=== PATIENT | female | born 1950 | race Caucasian/White ===

== ENCOUNTER 2020-01-03 20:36 | Emergency (ER) | payer MEDICARE, OTHER ==
--- NOTE | 2020-01-03 20:58 | ED Physician Documentation ---
PD HPI UPPER EXT INJURY - Stated complaint Stated Complaint: FALL - LT HAND/WRIST INJ - Chief complaint Chief Complaint: Ext Problem - History obtained from History obtained from: Patient - History of Present Illness Location: Left, Hand Type of injury: Fall Where injury occurred: Home Timing - onset: How many hours ago (2) Timing - duration: Hours (2) Timing - details: Abrupt onset Pain level max: 5 Pain level now: 3 Improved by: Rest, Ice, Immobilization Worsened by: Moving, Palpating Associated symptoms: No: Weakness, Numbness, Tingling Contributing factors: No: Anticoagulated Recently seen: Not recently seen Review of Systems Constitutional: denies: Fever, Chills Respiratory: denies: Cough GI: denies: Nausea, Vomiting, Diarrhea Neurologic: denies: Focal weakness, Numbness, Headache PD PAST MEDICAL HISTORY - Past Medical History Cardiovascular: Hypertension, CT Respiratory: None Endocrine/Autoimmune: None GI: None : None HEENT: None Psych: Other Musculoskeletal: None Derm: None - Past Surgical History Past Surgical History: Yes Neuro: Craniotomy - Present Medications Home Medications: Ambulatory Orders Medication Instructions Recorded Confirmed Albuterol 2.5 mg INH Q4H PRN 06/28/13 07/02/13 Diphenoxylate HCl/Atropine 1 each PO DAILY 06/28/13 07/02/13 [Diphenoxylate-Atropine Tablet] Folic Acid 1 mg PO DAILY 06/28/13 07/02/13 Levetiracetam [Levetiracetam ER] 500 mg PO BID 06/28/13 07/02/13 Temazepam [Restoril] 30 mg PO HS 06/28/13 07/02/13 Thiamine [Vitamin B-1] 100 mg PO DAILY 06/28/13 07/02/13 carvediloL [Coreg] 3.125 mg PO BID 06/28/13 07/02/13 diphenhydrAMINE [Benadryl] 50 mg PO HS PRN 06/28/13 07/02/13 lisinopriL [Lisinopril] 2.5 mg PO DAILY 06/28/13 07/02/13 Isosorbide Dinitrate 5 mg PO BID 07/02/13 07/02/13 Pantoprazole Sodium 40 mg PO DAILY 07/02/13 07/02/13 Sucralfate [Carafate] 1 gm PO ACHS 07/02/13 07/02/13 - Allergies Allergies/Adverse Reactions: Allergies Allergy/AdvReac Type Severity Reaction Status Date / Time Sulfa (Sulfonamide Allergy Severe Rash Verified 06/28/13 05:42 Antibiotics) - Social History Does the pt smoke?: No Smoking Status: Never smoker Does the pt drink ETOH?: Yes Does the pt have substance abuse?: No - Immunizations Immunizations are current?: Yes - POLST Patient has POLST: No POLST Status: Full Code PD ED PE NORMAL - Vitals Vital signs reviewed: Yes - General General: Alert and oriented X 3, No acute distress - HEENT HEENT: Atraumatic, Moist mucous membranes - Derm Derm: Warm and dry - Extremities Extremities: Other (Tender to palpation over the left hand, thenar eminence. No snuffbox tenderness. Otherwise normal examination of the hand, wrist and forearm. No tenderness over the radial head. Neurovascular intact) - Neuro Neuro: Alert and oriented X 3 Results - Vitals Vitals: Vital Signs - 24 hr 01/03/20 01/03/20 20:42 21:33 Temperature 36.2 C L Heart Rate 77 66 Respiratory 17 16 Rate Blood Pressure 157/87 H 125/79 O2 Saturation 100 98 Oxygen O2 Source Room air - Rads (name of study) L hand xray Radiology: Prelim report reviewed, EMP read contemporaneously, See rad report (No acute abnormality) PD MEDICAL DECISION MAKING - ED course Complexity details: reviewed results, re-evaluated patient, considered differential, d/w patient ED course: Placed in a Velcro thumb spica for comfort. All jewelry was removed from the arm and fingers. No acute findings on x-ray. Patient counseled regarding signs and symptoms for which I believe and urgent re-evaluation would be necessary. Patient with good understanding of and agreement to plan and is comfortable going home at this time This document was made in part using voice recognition software. While efforts are made to proofread this document, sound alike and grammatical errors may occur. Departure - Departure Disposition: 01 Home, Self Care Clinical Impression: Sprain of wrist, left Qualifiers: Encounter type: initial encounter Qualified Code(s): S63.502A - Unspecified sprain of left wrist, initial encounter Condition: Good Instructions: ED Sprain Wrist Follow-Up: your,doctor in 1 week [Other] Comments: Keep your rings off for the next several days. Use the splint as needed for comfort. Return if you worsen. Your x-rays do not show any fractures today
--- NOTE | 2020-01-03 21:18 | XRAY Report ---
PROCEDURE: Hand 3 View LT INDICATIONS: fall, L hand pain TECHNIQUE: 3 views of the hand(s) acquired. COMPARISON: None. FINDINGS: Bones: No fractures or dislocations. There is diffuse interphalangeal joint space narrowing and mode rate degenerative change at the first CMC joint. No suspicious bony lesions. Soft tissues: No suspicious soft tissue calcifications. IMPRESSION: 1. No acute radiographic findings. If pain persists, consider repeat imaging in 5-7 days to exclude o ccult fracture. 2. Degenerative change. Reviewed by: Maggie Waite MD on 01/03/2020 9:17 PM PDT Approved by: Maggie Waite MD on 01/03/2020 9:17 PM PDT Station ID: [id number]
[2020-01-03] MEDS ORDERED: oxyCODONE 5 MG TABLET PO STA (21:26)
[2020-01-03 21:41] VITALS: BP 130/82
== END 2020-01-03 21:40 | disposition home or self-care (01) ==
LOC: ED 20:36
DX: S63.502A Unspecified sprain of left wrist, initial encounter (principal); W01.0XXA Fall on same level from slipping, tripping and stumbling without subsequent striking against object, initial encounter; Y93.G3 Activity, cooking and baking; Y92.009 Unspecified place in unspecified non-institutional (private) residence as the place of occurrence of the external cause; I10 Essential (primary) hypertension
CPT/HCPCS: 73130; 99282; 99283; A9270

== ENCOUNTER 2020-12-05 10:13 | Outpatient (CLI) | payer MEDICARE, OTHER ==
[2020-12-05 10:44] LABS: BASOPHILS % (AUTO) 0.8 %; EOSINOPHILS # (AUTO) 0.2 10^3/uL (0.0-0.7); EOSINOPHILS % (AUTO) 4.1 %; HCT - HEMATOCRIT 40.2 % (37.0-47.0); HGB - HEMOGLOBIN 13.1 g/dL (12.0-16.0); LYMPHOCYTES # (AUTO) 1.6 10^3/uL (1.5-3.5); LYMPHOCYTES % (AUTO) 31.3 %; MEAN CORPUSCULAR HEMOGLOBIN 31.1 pg (27.0-31.0); MEAN CORPUSCULAR HGB CONC 32.6 g/dL (32.0-36.0); MEAN CORPUSCULAR VOLUME 95.5 fL (81.0-99.0); MEAN PLATELET VOLUME 9.6 fL (7.9-10.8); MONOCYTES # (AUTO) 0.3 10^3/uL (0.0-1.0); MONOCYTES % (AUTO) 6.7 %; NEUTROPHILS # (AUTO) 2.9 10^3/uL (1.5-6.6); NEUTROPHILS % (AUTO) 56.7 %; PLT - PLATELET COUNT 256 10^3/uL (130-450); RED BLOOD COUNT 4.21 10^6/uL (4.20-5.40); WHITE BLOOD COUNT 5.1 x10^3/uL (4.8-10.8)
[2020-12-05 11:02] LABS: ALBUMIN 4.9 g/dL (3.2-5.5); ALBUMIN/GLOBULIN RATIO 1.4 (1.0-2.2); ALKALINE PHOSPHATASE 62 IU/L (42-121); ALT ALANINE AMINOTRANSFERASE 33 IU/L (10-60); AST ASPARTATE AMINOTRANSFERASE 38 IU/L (10-42); BILIRUBIN,TOTAL 0.7 mg/dL (0.2-1.0); BUN - BLOOD UREA NITROGEN 12 mg/dL (6-20); CALCIUM 9.7 mg/dL (8.5-10.3); CARBON DIOXIDE - CO2 23 mmol/L (21-32); CHLORIDE 98 mmol/L (101-111); CHOL/HDL RATIO 2.5 (<4.4); CHOLESTEROL 250 mg/dL; CREATININE 0.6 mg/dL (0.4-1.0); GFR - MDRD 99 (>89); GLUCOSE 93 mg/dL (70-100); HDL CHOLESTEROL 102 mg/dL; LDL CHOLESTEROL,CALCULATED 133 mg/dL; LDL/HDL RATIO 1.3 (<4.4); POTASSIUM 4.1 mmol/L (3.5-5.0); SODIUM 133 mmol/L (135-145); TOTAL PROTEIN 8.5 g/dL (6.7-8.2); TRIGLYCERIDES 77 mg/dL; VLDL CHOLESTEROL 15 mg/dL
[2020-12-06 12:17] LABS: HEPATITIS C ANTIBODY NON-REACTIVE (NON-REACTIVE)
== END 2020-12-05 10:14 | disposition home or self-care (01) ==
LOC: LAB 10:13
PROVIDERS: ATTEND Internal Medicine
DX: Z00.00 Encounter for general adult medical examination without abnormal findings (principal); D32.0 Benign neoplasm of cerebral meninges; E16.2 Hypoglycemia, unspecified; I25.10 Atherosclerotic heart disease of native coronary artery without angina pectoris; Z79.899 Other long term (current) drug therapy; Z13.6 Encounter for screening for cardiovascular disorders; Z11.59 Encounter for screening for other viral diseases; G40.909 Epilepsy, unspecified, not intractable, without status epilepticus
CPT/HCPCS: 36415; 80053; 80061; 81599; 83525; 83721; 84443; 85025; 86803

== ENCOUNTER 2021-06-02 19:15 | Emergency (ER) | payer MEDICARE, OTHER ==
[2021-06-02] MEDS ORDERED: ASPIRIN CHEW 81 MG TABLET PO STA (19:39)
[2021-06-02 19:59] LABS: BASOPHILS # (AUTO) 0.1 10^3/uL (0.0-0.1); BASOPHILS % (AUTO) 1.2 %; EOSINOPHILS # (AUTO) 0.3 10^3/uL (0.0-0.7); EOSINOPHILS % (AUTO) 4.9 %; HCT - HEMATOCRIT 38.8 % (37.0-47.0); HGB - HEMOGLOBIN 12.6 g/dL (12.0-16.0); LYMPHOCYTES # (AUTO) 1.7 10^3/uL (1.5-3.5); LYMPHOCYTES % (AUTO) 34.2 %; MEAN CORPUSCULAR HEMOGLOBIN 31.3 pg (27.0-31.0); MEAN CORPUSCULAR HGB CONC 32.5 g/dL (32.0-36.0); MEAN CORPUSCULAR VOLUME 96.5 fL (81.0-99.0); MONOCYTES # (AUTO) 0.5 10^3/uL (0.0-1.0); MONOCYTES % (AUTO) 9.1 %; NEUTROPHILS # (AUTO) 2.6 10^3/uL (1.5-6.6); NEUTROPHILS % (AUTO) 50.4 %; PLT - PLATELET COUNT 302 10^3/uL (130-450); RED BLOOD COUNT 4.02 10^6/uL (4.20-5.40); RED CELL DISTRIBUTION WIDTH 12.4 % (12.0-15.0); WHITE BLOOD COUNT 5.1 x10^3/uL (4.8-10.8)
--- NOTE | 2021-06-02 20:12 | XRAY Report ---
PROCEDURE: Chest 1 View X-Ray INDICATIONS: Chest Pain TECHNIQUE: One view of the chest was acquired. COMPARISON: None. FINDINGS: Surgical changes and devices: None. Lungs and pleura: No pleural effusions or pneumothorax. Scattered subsegmental scarring/atelectasi s. No acute consolidation. Lungs appear hyperinflated Mediastinum: Mediastinal contours appear normal. Heart size is normal. Bones and chest wall: No suspicious bony lesions. Overlying soft tissues appear unremarkable. IMPRESSION: Scattered subsegmental scarring/atelectasis. No acute consolidation. Reviewed by: Yassine Jackman MD on 06/02/2021 8:10 PM PST Approved by: Yassine Jackman MD on 06/02/2021 8:10 PM [facility] Station ID: [id number]
[2021-06-02] MEDS ORDERED: HYDROmorphone 1 MG/ML CARPUJECT IVP STA (20:13)
--- NOTE | 2021-06-02 20:13 | ED Physician Documentation ---
PD HPI CHEST PAIN - Stated complaint Stated Complaint: MID STERNAL PAIN & L SIDE CHEST AREA PX - Chief complaint Chief Complaint: Trauma Hd/Nk - History obtained from History obtained from: Patient - Additional information Additional information: 70 year-old woman with well-controlled seizure disorder, she fell a few days ago and got injured, tonight during dinner she developed severe epigastric and chest spasming. It feels like childbirth. She is never had this before. She has had a broken rib before and this is not similar. PD PAST MEDICAL HISTORY - Past Medical History Cardiovascular: Hypertension, [place] Respiratory: None Neuro: Seizure disorder Endocrine/Autoimmune: None GI: None : None HEENT: None Psych: Other Musculoskeletal: None Derm: None - Past Surgical History Past Surgical History: Yes Neuro: Craniotomy - Present Medications Home Medications: Ambulatory Orders Medication Instructions Recorded Confirmed Albuterol 2.5 mg INH Q4H PRN 06/28/13 06/02/21 Levetiracetam [Levetiracetam ER] 500 mg PO BID 06/28/13 06/02/21 Temazepam [Restoril] 30 mg PO HS 06/28/13 06/02/21 diphenhydrAMINE [Benadryl] 50 mg PO HS PRN 06/28/13 06/02/21 HYDROcod/ACETAM 5/325 [[place] 5/325] 1 - 2 tab PO Q6H PRN #15 tablet 06/02/21 Lacosamide [Vimpat] 100 mg PO BID 06/02/21 06/02/21 - Allergies Allergies/Adverse Reactions: Allergies Allergy/AdvReac Type Severity Reaction Status Date / Time Sulfa (Sulfonamide Allergy Severe Rash Verified 06/02/21 19:38 Antibiotics) - Social History Does the pt smoke?: No Smoking Status: Never smoker Does the pt drink ETOH?: Yes Does the pt have substance abuse?: No - Immunizations Immunizations are current?: Yes - POLST Patient has POLST: No POLST Status: Full Code PD ED PE NORMAL - Vitals Vital signs reviewed: Yes - General General: Alert and oriented X 3, Other (She appears uncomfortable and is clutching her epigastrium. She is trying to breathe through the pain.) - HEENT HEENT: PERRL, EOMI, Other (Healing lacerationss above the left eye) - Neck Neck: Supple, no meningeal sign, No bony TTP - Cardiac Cardiac: RRR, No murmur - Respiratory Respiratory: No respiratory distress, Clear bilaterally - Abdomen Abdomen: Other (Exquisitely tender in the right upper quadrant) - Back Back: No CVA TTP, No spinal TTP - Derm Derm: Normal color, Warm and dry - Extremities Extremities: No edema, No calf tenderness / cord - Neuro Neuro: Alert and oriented X 3, Normal speech Results - Vitals Vitals: Vital Signs - 24 hr 06/02/21 06/02/21 06/02/21 19:17 20:02 20:30 Temperature 36.9 C Heart Rate 78 80 73 Respiratory 20 16 15 Rate Blood Pressure 135/85 H 119/79 141/83 H O2 Saturation 99 100 95 06/02/21 06/02/21 21:00 21:26 Temperature 36.8 C Heart Rate 70 76 Respiratory 12 19 Rate Blood Pressure 148/82 H 141/81 H O2 Saturation 97 98 Oxygen O2 Source Room air - Labs Labs: Laboratory Tests 06/02/21 06/02/21 06/02/21 19:45 19:45 19:45 WBC 5.1 RBC 4.02 L Hgb 12.6 Hct 38.8 MCV 96.5 MCH 31.3 H MCHC 32.5 RDW 12.4 Plt Count 302 MPV 9.0 Neut # (Auto) 2.6 Lymph # (Auto) 1.7 [place] # (Auto) 0.5 Eos # (Auto) 0.3 Baso # (Auto) 0.1 Absolute Nucleated RBC 0.00 Nucleated RBC % 0.0 Sodium 141 Potassium 3.7 Chloride 103 Carbon Dioxide 25 Anion Gap 13.0 BUN 14 Creatinine 0.7 Estimated GFR (MDRD) 83 L Glucose 75 Calcium 9.7 Total Bilirubin 0.4 AST 34 ALT 26 Alkaline Phosphatase 70 Troponin I High Sens 5.7 Total Protein 8.4 H Albumin 4.8 Globulin 3.6 Albumin/Globulin Ratio 1.3 Lipase 36 PD MEDICAL DECISION MAKING - ED course ED course: 70yo woman presents with a severe right-sided and epigastric/chest spasming that started while eating dinner tonight. She is exquisitely tender in the right upper quadrant and this is all consistent with biliary colic. After 1 mg of Dilaudid she was all but pain-free and the tenderness abated. She has many gallstones on ultrasound and her episode is consistent with biliary colic. There is no evidence of cholecystitis. No evidence of ACS. Departure - Departure Disposition: 01 Home, Self Care Clinical Impression: Biliary colic Condition: Good Record reviewed to determine appropriate education?: Yes Instructions: ED Gallstone W Biliary Colic Follow-Up: Ian Leigh MD [Provider Admit Priv/Credential] - Prescriptions: HYDROcod/ACETAM 5/325 [[place] 5/325] 1 - 2 tab PO Q6H PRN #15 tablet PRN Reason: Pain Comments: [facility] [place]. Call the surgeon's office to follow-up, return for new or worsening symptoms. I am prescribing a short course of narcotic pain medication for you. These are potentially dangerous and addictive medications that should be used carefully. These medications may constipate you. Take an ktdw-ujb-mpptasa stool softener (docusate) twice daily with plenty of water while taking these medications. If you go 24 hours without a bowel movement, take fwaq-hmd-irijjga miralax, per package instructions. Do not drink or drive while taking these medications. If you received narcotic or sedating medications while in the emergency department, do not drive for 24 hours. Store this medication in a safe, secure place and out of reach of children. It is a violation of federal law to give or sell this medication to another person or to use in a manner other than prescribed. The ED will not refill narcotic prescriptions, including prescriptions lost or stolen. To dispose of unwanted medications: 1. [facility] at [address] in [place] has a medication drop box. They accept prescription medications (in pill form) Tuesday through Tuesday 9:00 a.m. to 5:00 p.m. 2. The [facility] [employer] accepts prescription medications (in pill form only) for disposal year round. Call for more information. 3. Contact the [facility] for the next [facility] sponsored prescription drug collection event. , [phone], or [phone]; Note that many narcotic pain relievers also contain Tylenol/acetaminophen. Please ensure that your total dose of acetaminophen from all sources does not exceed 3 g (3000 mg) per day.
[2021-06-02 20:15] LABS: ALBUMIN 4.8 g/dL (3.2-5.5); ALBUMIN/GLOBULIN RATIO 1.3 (1.0-2.2); BILIRUBIN,TOTAL 0.4 mg/dL (0.2-1.0); CALCIUM 9.7 mg/dL (8.5-10.3); CREATININE 0.7 mg/dL (0.4-1.0); POTASSIUM 3.7 mmol/L (3.5-5.0); TOTAL PROTEIN 8.4 g/dL (6.7-8.2)
[2021-06-02] MEDS ORDERED: HYDROcod/ACET 5/325 Prepack 4 PO STA (21:17)
[2021-06-02 21:27] VITALS: BP 141/81
--- NOTE | 2021-06-02 21:44 | Ultrasound Report ---
PROCEDURE: Abdomen Limited INDICATIONS: RUQ pain TECHNIQUE: Real-time focused scanning was performed of the abdomen, with image documentation. COMPARISON: Ultrasound dated 06/28/2013 FINDINGS: Previously described hemangioma seen on the prior study is not well seen on today's examin ation. Liver measures 14.2 cm in length. Gallbladder polyps measuring up to 4 mm. Gallstones are present. No wall thickening or pericholecysti c fluid. No sonographic López sign. No bile duct dilatation is seen. The pancreas is unremarkable. R ight kidney measures 8.8 cm in length. Right renal cortex measures 1.4 cm in thickness. IMPRESSION: Cholelithiasis and gallbladder polyps however no other sonographic criteria for acute cholecystitis. Previous described presumed hepatic hemangioma is not well visualized on today's examination. Reviewed by: Yassine Jackman MD on 06/02/2021 9:42 PM PST Approved by: Yassine Jackman MD on 06/02/2021 9:42 PM PST Station ID: [id number]
== END 2021-06-02 21:38 | disposition home or self-care (01) ==
LOC: ED 19:15
DX: K80.50 Calculus of bile duct without cholangitis or cholecystitis without obstruction (principal)
CPT/HCPCS: 36415; 71045; 76705; 80053; 83690; 84484; 85025; 93005; 96374; 99283; 99284; A9270; J1170

== ENCOUNTER 2021-06-24 11:54 | Day surgery (SDC) | payer MEDICARE, OTHER ==
[~2021-06-24 11:54] MED LIST: CEFAZOLIN SODIUM IN 0.9 % NACL 2 GM/100 ML BAG IV ONE
[2021-06-24] MEDS ORDERED: LACTATED RINGERS 1,000 ML IV ONE ×2 (12:27→15:46)
[2021-06-24] MEDS ORDERED: BUPIVACAINE 0.5% PF 10 ML VIAL ONE (13:19)
[2021-06-24] MEDS ORDERED: LIDOCAINE MPF 2%-EPI 1:200000 20 ML VIAL ONE (13:19)
[2021-06-24] MEDS ORDERED: MORPHINE 2 MG/ML CARPUJECT IVP PRN (13:36)
[2021-06-24] MEDS ORDERED: ATROPINE ABBOJECT 1 MG/10 ML SYRINGE IVP PRN (13:36)
[2021-06-24] MEDS ORDERED: fentaNYL 100 MCG/2 ML VIAL IVP PRN (13:36)
[2021-06-24] MEDS ORDERED: ONDANSETRON 4 MG/2 ML VIAL IVP PRN ×2 (13:36→15:49)
[2021-06-24] MEDS ORDERED: NALOXONE 0.4 MG/ML VIAL IVP PRN (13:36)
[2021-06-24] MEDS ORDERED: METOCLOPRAMIDE 10 MG/2 ML VIAL IVP PRN (13:36)
[2021-06-24] MEDS ORDERED: ePHEDrine 50 MG/ML VIAL IVP PRN (13:36)
--- NOTE | 2021-06-24 13:36 | ANESTHESIA ---
Pre-Anesthesia VS, & Labs - Diagnosis gallstones - Procedure lap evangelista Vital Signs: Temp Pulse Resp BP Pulse Ox 36.9 C 73 18 160/77 H 100 06/24/21 12:10 06/24/21 12:10 06/24/21 12:10 06/24/21 12:10 06/24/21 12:10 Height: 5 ft 2 in Weight (kg): 41 kg Body Mass Index: 16.5 BMI Classification: Underweight - NPO >8 hours - Is Patient ?: No - Lab Results Current Lab Results: Laboratory Tests 06/24/21 13:29: POC Whole Bld Glucose 94 Home Medications and Allergies Home Medications: Ambulatory Orders Amitriptyline HCl 50 mg PO QPM PRN 06/19/21 Albuterol 2.5 mg INH Q4H PRN 06/28/13 Levetiracetam [Levetiracetam ER] 500 mg PO BID 06/28/13 Temazepam [Restoril] 30 mg PO HS 06/28/13 diphenhydrAMINE [Benadryl] 50 mg PO HS PRN 06/28/13 Lacosamide [Vimpat] 100 mg PO BID 06/02/21 Amitriptyline HCl 50 mg PO QPM PRN 06/19/21 Allergies/Adverse Reactions: Allergies Allergy/AdvReac Type Severity Reaction Status Date / Time Sulfa (Sulfonamide Allergy Severe Anaphylaxis Verified 06/24/21 12:17 Antibiotics) pneumococcal vaccine Allergy Headache Verified 06/24/21 12:17 [From Pneumovax-23] sucralfate [From Carafate] Allergy Unknown Verified 06/24/21 12:17 flu vaccine Allergy Anaphylaxis Uncoded 06/24/21 12:17 Anes History & Medical History - Anesthetic History Anesthesia Complications: reports: No previous complications Family history of Anesthesia Complications: Denies Family history of Malignant Hyperthermia: Denies - Medical History Cardiovascular: reports: [place] Pulmonary: reports: Asthma Gastrointestinal: reports: Chronic diarrhea Urinary: reports: None Neuro: reports: Seizure disorder Musculoskeletal: reports: Osteoarthritis Endocrine/Autoimmune: reports: None Blood Disorders: reports: Anemia Skin: reports: None Smoking Status: Never smoker - Surgical History Eyes Ears Nose Throat (EENT): reports: Cataracts Gynecologic: reports: Tubal ligation Neurologic: reports: Craniotomy Exam General: Alert, Oriented x3, Cooperative Dental: WNL Mouth Openin Fingerbreadth Neck Mobility: Normal Mallampati classification: I Respiratory: Lungs clear Cardiovascular: Regular rate Plan Anesthesia Type: General Consent for Procedure(s) Verified and Reviewed: Yes Code Status: Attempt Resuscitation ASA classification: 3-Severe systemic disease Is this case an emergency?: No
[2021-06-24] MEDS ORDERED: PROPOFOL 200 MG/20 ML VIAL IVP ONE (13:45)
[2021-06-24] MEDS ORDERED: LIDOCAINE-MPF 2% 5 ML VIAL ONE (13:45)
[2021-06-24] MEDS ORDERED: ROCURONIUM 50 MG/5 ML VIAL ONE (13:45)
[2021-06-24] MEDS ORDERED: MIDAZOLAM 2 MG/2 ML VIAL ONE (13:47)
[2021-06-24] MEDS ORDERED: LACTATED RINGERS 1,000 ML IV SCH (14:00)
[2021-06-24] MEDS ORDERED: BUPIVACAINE 0.5% PF 10 ML VIAL SUBQ ONE ×2 (15:11)
[2021-06-24] MEDS ORDERED: LIDOCAINE MPF 2%-EPI 1:200000 20 ML VIAL SUBQ ONE ×2 (15:11)
[2021-06-24] MEDS ORDERED: KETOROLAC 30 MG/ML VIAL ONE (15:21)
[2021-06-24] MEDS ORDERED: fentaNYL 100 MCG/2 ML VIAL ONE (15:23)
[2021-06-24] MEDS ORDERED: SUGAMMADEX 200 MG/2 ML VIAL IVP ONE (15:31)
[2021-06-24] MEDS ORDERED: HYDROcod/ACETAM 5/325 MG TABLET PO PRN (15:49)
[2021-06-24] MEDS: HYDROmorphone 0.5 MG/0.5 ML SYRINGE IVP PRN ×2 (15:58→16:09)
--- NOTE | 2021-06-24 15:59 | OPERATIVE REPORT ---
Operative Report - General Procedure Date: 06/24/21 Planned Procedure: lap evangelista Pre-Op Diagnosis: chronic cholecystitis Procedure Performed: lap evangelista Post Op Diagnosis: chronic cholecystitis - Procedure Note Primary Surgeon: tasneem presley Anesthesia Technique: General ET tube, Local - Other Other Information/Narrative: The patient was properly identified, brought to the operating room and placed in supine position. Sequential compression devices were placed. General endotracheal anesthesia was induced. The patient was prepped and draped in a sterile fashion and given preoperative antibiotics. Local anesthetic was given to incision areas. An incision was made in the periumbilical area. Dissection proceeded down to fascia. The fascia was incised lifted upwards and abdomen entered with a Veress needle. CO2 was insufflated to a pressure of 15. An 11 mm trocar followed by a 30 degree scope was placed. There was no evidence of injury from Veress needle or trocar placement. Under direct vision 2 5 mm trochars were placed in the right upper quadrant and an 11 mm trocar was placed in the epigastrium. Body of the gallbladder was retracted anterior. Lateral attachments were partially taken down further mobilizing the gallbladder more anterior and away from the duodenum. The infundibulum of the gallbladder was then retracted right lateral and caudad. With minimal use of cautery a large bare cystic plate area or window was carefully created. The cystic duct was inspected from right lateral and left lateral positions. [] The cystic duct was then clipped at the gallbladder and 3 times slightly proximal and sharply divided. The cystic artery was clipped at the gallbladder and then 2 times slightly proximal and sharply divided. The gallbladder was mobilized off from the bed of the liver with hook cautery. The gallbladder was placed in Endo Catch bag and brought out through the epigastric trocar site. Hemostasis was assured. Trochars were removed under direct vision. Fascia at the larger trocar sites was closed with zuqmhg-sr-bisvz are running 0 Vicryl suture. Subcutaneous tissue was irrigated and skin closed with interrupted 4-0 Monocryl. Dressings were applied. Patient tolerated the procedure well was awakened and brought to recovery in good condition.
[2021-06-24] MEDS ORDERED: HYDROmorphone 0.5 MG/0.5 ML SYRINGE ONE ×2 (16:01→16:13)
--- NOTE | 2021-06-24 16:01 | ANESTHESIA POST OP EVALUATION ---
Anesthesia Post Eval - Post Anesthesia Eval Vitals: Last Vital Signs Temp 36.5 C 06/24/21 15:42 Pulse 79 06/24/21 15:45 Resp 18 06/24/21 15:45 BP 151/81 H 06/24/21 15:45 Pulse Ox 99 06/24/21 15:45 CV Function Including HR & BP: Stable Pain Control: Satisfactory Nausea & Vomiting: Negative Mental Status: Baseline Respiratory Status: Airway Patent Hydration Status: Satisfactory Anesthesia Complications: None
[2021-06-24] MEDS ORDERED: HYDROcod/ACETAM 5/325 MG TABLET ONE (16:38)
[2021-06-24 16:43] VITALS: BP 136/69
== END 2021-06-24 11:55 | disposition home or self-care (01) ==
LOC: SDS 11:54
PROVIDERS: ATTEND Surgery
PROC: 0FT44ZZ Resection of Gallbladder, Percutaneous Endoscopic Approach (ICD-10-PCS; principal; 2021-06-24 13:30)
DX: K80.10 Calculus of gallbladder with chronic cholecystitis without obstruction (principal); R63.6 Underweight; Z68.1 Body mass index [BMI] 19.9 or less, adult; J45.909 Unspecified asthma, uncomplicated
CPT/HCPCS: 47562; A9270; J0690; J1170; J7120

== ENCOUNTER 2021-12-29 17:33 | Outpatient (CLI) | payer MEDICARE, OTHER | END 2021-12-29 17:34 | disposition critical access hospital (66) | LOC: EMS 17:33 | DX: R41.0 Disorientation, unspecified (principal); R47.89 Other speech disturbances; R53.1 Weakness; R20.8 Other disturbances of skin sensation; I10 Essential (primary) hypertension | CPT/HCPCS: A0425; A0427 ==

== ENCOUNTER 2021-12-29 17:40 | Emergency (ER) | payer MEDICARE, OTHER ==
[2021-12-29] MEDS ORDERED: SODIUM CHLORIDE 0.9% 1,000 ML IV STA (17:55)
[2021-12-29 18:04] LABS: BASOPHILS # (AUTO) 0.1 10^3/uL (0.0-0.1); BASOPHILS % (AUTO) 1.1 %; EOSINOPHILS # (AUTO) 0.1 10^3/uL (0.0-0.7); EOSINOPHILS % (AUTO) 1.9 %; HCT - HEMATOCRIT 35.4 % (37.0-47.0); HGB - HEMOGLOBIN 11.7 g/dL (12.0-16.0); LYMPHOCYTES # (AUTO) 1.8 10^3/uL (1.5-3.5); LYMPHOCYTES % (AUTO) 32.5 %; MEAN CORPUSCULAR HEMOGLOBIN 31.8 pg (27.0-31.0); MEAN CORPUSCULAR HGB CONC 33.1 g/dL (32.0-36.0); MEAN CORPUSCULAR VOLUME 96.2 fL (81.0-99.0); MEAN PLATELET VOLUME 9.8 fL (7.9-10.8); MONOCYTES # (AUTO) 0.7 10^3/uL (0.0-1.0); MONOCYTES % (AUTO) 12.1 %; NEUTROPHILS # (AUTO) 2.8 10^3/uL (1.5-6.6); NEUTROPHILS % (AUTO) 52.2 %; PLT - PLATELET COUNT 254 10^3/uL (130-450); RED BLOOD COUNT 3.68 10^6/uL (4.20-5.40); RED CELL DISTRIBUTION WIDTH 12.3 % (12.0-15.0); WHITE BLOOD COUNT 5.4 x10^3/uL (4.8-10.8)
[2021-12-29] MEDS ORDERED: IOPAMIDOL-300 50 ML VIAL IVP ONE (18:10)
[2021-12-29 18:18] LABS: ALBUMIN 4.6 g/dL (3.2-5.5); ALBUMIN/GLOBULIN RATIO 1.4 (1.0-2.2); BILIRUBIN,TOTAL 0.5 mg/dL (0.2-1.0); CALCIUM 9.7 mg/dL (8.5-10.3); CREATININE 0.6 mg/dL (0.4-1.0); POTASSIUM 3.6 mmol/L (3.5-5.0)
[2021-12-29 18:23] LABS: INR 1.1 (0.8-1.2); PT - PROTHROMBIN TIME 11.9 secs (9.9-12.6)
--- NOTE | 2021-12-29 18:28 | CT Report ---
PROCEDURE: ANGIO HEAD W/WO INDICATIONS: L sided facial droop CONTRAST: IV CONTRAST: Isovue 300 ml: 75 PO CONTRAST: *NO PO CONTRAST TECHNIQUE: Precontrast 4.5 mm thick angled axial sections acquired from the foramen magnum to the vertex. Afte r the administration of intravenous contrast, 1 mm thick sections acquired through the [place] is. Postcontrast 4.5 mm thick sections then re-acquired from the foramen magnum to the vertex. 3-di mensional dqrnauw-qjlmchruz-opkmwerbhx (MIP) and/or volume rendering reformats were acquired of the c entral intracranial vasculature. For radiation dose reduction, the following was used: automated ex posure control, adjustment of mA and/or kV according to patient size. COMPARISON: Correlation is made with the accompanying neck CT angiogram, 12/29/2021. FINDINGS: Image quality: Excellent. Anterior circulation: Intracranial internal carotid arteries are normal in size and flow. The flow within the paired anterior cerebral arteries is normal and symmetric. The flow within the middle cer ebral arteries is normal and symmetric. The anterior communicating artery is seen. No aneurysms are seen. Posterior circulation: Bilateral type origins of the posterior cerebral arteries can be seen, with an associated hypoplastic basilar artery. The distal vertebral arteries are within normal limits . No aneurysms are seen. CSF spaces: Ventricles are normal in size and shape. Basal cisterns are patent. No extra-axial flu id collections. Brain: Focal resection change can be seen involving the left posterior lateral temporal parietal raegan on, with volume loss and encephalomalacia. No saulo masses or abnormal enhancement can be seen within this region. No abnormal enhancement or masses can be seen elsewhere. No midline shift. No intracranial bleeds. Chaney-white matter interface appears intact. Skull and face: Left posterior craniotomy changes are seen. Calvarium and facial bones appear intact, without suspicious lesions. Sinuses: Visualized sinuses and mastoids are clear. IMPRESSION: No significant intracranial arterial abnormalities are seen. Prior resection change seen involving the left posterior inferior temporal parietal region. No saulo recurrent masses are seen. Reviewed by: Jose Giron MD on 12/29/2021 5:26 PM [facility]DORA Approved by: Jose Giron MD on 12/29/2021 5:26 PM [facility] Station ID: [id number]
--- NOTE | 2021-12-29 18:31 | CT Report ---
PROCEDURE: ANGIO NECK W INDICATIONS: L sided facial droop, L neck pain CONTRAST: IV CONTRAST: Isovue 300 ml: 75 PO CONTRAST: *NO PO CONTRAST TECHNIQUE: After the administration of intravenous contrast, 1.5 mm axial sections acquired from the aortic arch to the [place]. Coronal 3-D maximum intensity projection (MIP) and/or volume rendering ref ormats were then performed. For radiation dose reduction, the following was used: automated exposur e control, adjustment of mA and/or kV according to patient size. COMPARISON: Correlation is made with the accompanying head CT angiogram, 12/29/2021. FINDINGS: Image quality: Excellent. Carotid system: The great vessels demonstrate a conventional anatomy as they arise from the aortic a rch. The origins of the common carotid arteries appear patent. The common carotid arteries demonstr ate normal calibers and courses. The bifurcation regions appear normal bilaterally. The internal ca rotid arteries demonstrate normal caliber and course. Posterior circulation: The origins of the vertebral arteries appear patent. The more superior porti ons of the vertebral arteries demonstrate normal course and caliber. They join to form a normal appe aring basilar artery. Soft tissues: Visualized neck soft tissues demonstrate no suspicious abnormalities. The thyroid is normal in size and there are no incidental findings. In this patient with this given history of left facial droop, scrutiny is given to the course of the left facial nerve, including within the left parotid gland. To the limits of this study, no masses or abnormal enhancement can be seen. Bones: No suspicious bony lesions. Visualized cervical spine appears normally aligned. At least m oderate lower cervical spine degenerative changes are seen, with moderate to severe disc space narrow ing at C5-C6 and C6-C7. Milder degenerative changes are seen elsewhere. Left temporoparietal resection change can be seen, with overlying craniotomy changes. IMPRESSION: No hemodynamically significant stenosis can be seen within the arteries of the neck. No imaging explanation is found for the patient's presenting symptoms. Incidental note is made of: Left temporoparietal resection change. At least moderate lower cervical spine degenerative changes The estimate of stenosis included in the report of the imaging study was calculated using the NASCET method Reviewed by: Jose Giron MD on 12/29/2021 5:30 PM [facility] Approved by: Jose Giron MD on 12/29/2021 5:30 PM [facility] Station ID: [id number]
--- NOTE | 2021-12-29 18:33 | ED Physician Documentation ---
History of Present Illness - Stated complaint Stated Complaint: CODE STROKE - Chief complaint Chief Complaint: Neuro - History obtained from History obtained from: Patient, EMS - Additonal information Additional information: The patient is brought to the emergency department by EMS for chief complaint of altered mental status and neurologic deficits. The patient states that she was in the shower when she suddenly felt as though she might have a seizure. She is somewhat of a difficult historian, due to aphasia. Medics state that the reported that the patient had what seemed to be a staring episode almost like a partial seizure. She was then unable to speak at all, though she seemed to be comprehending very clearly. She had dense right-sided weakness and was not able to use either her right arm or right leg initially. Medics state that the patient had improved a little bit in route. She can speak 1 word at a time by the time they left in the rig and now, can speak several words at a time. She is starting to move both her right arm and her right leg, which she could not do before. The patient states that this has happened on occasion previously when she has had a seizure. 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 She has never had a CVA that she knows of. Patient denies chest pain or shortness of breath. She has not been ill with anything recently. Review of Systems Ten Systems: 10 systems reviewed and negative Constitutional: reports: Reviewed and negative Eyes: reports: Reviewed and negative Ears: reports: Reviewed and negative Nose: reports: Reviewed and negative Throat: reports: Reviewed and negative Cardiac: reports: Reviewed and negative Respiratory: reports: Reviewed and negative GI: reports: Reviewed and negative : reports: Reviewed and negative Skin: reports: Reviewed and negative Musculoskeletal: reports: Reviewed and negative Neurologic: reports: Focal weakness, Difficulty speaking, Seizure Psychiatric: reports: Reviewed and negative Endocrine: reports: Reviewed and negative Immunocompromised: reports: Reviewed and negative PD PAST MEDICAL HISTORY - Past Medical History Cardiovascular: [place] Respiratory: Asthma Neuro: Seizure disorder Endocrine/Autoimmune: None GI: Chronic diarrhea : None HEENT: None Psych: None Musculoskeletal: Osteoarthritis Derm: None - Past Surgical History Past Surgical History: Yes 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 Neuro: Craniotomy HEENT: Cataracts - Present Medications Home Medications: Ambulatory Orders Medication Instructions Recorded Confirmed Albuterol 2.5 mg INH Q4H PRN 06/28/13 06/24/21 Levetiracetam [Levetiracetam ER] 500 mg PO BID 06/28/13 06/24/21 Temazepam [Restoril] 30 mg PO HS 06/28/13 06/19/21 diphenhydrAMINE [Benadryl] 50 mg PO HS PRN 06/28/13 06/19/21 Lacosamide [Vimpat] 100 mg PO BID 06/02/21 06/24/21 Amitriptyline HCl 50 mg PO QPM PRN 06/19/21 06/24/21 HYDROcod/ACETAM 5/325 [[place] 5/325] 1 each PO Q6H PRN #25 tablet 06/24/21 Ondansetron Odt [Zofran Odt] 4 mg PO Q6H PRN #15 tablet 06/24/21 oxyCODONE/ACET 5/325 [Percocet 5 1 each PO Q4-6H PRN #15 tablet 06/24/21 mg/325 mg] - Allergies Allergies/Adverse Reactions: Allergies Allergy/AdvReac Type Severity Reaction Status Date / Time Influenza Virus Vaccines Allergy Severe Anxiety Verified 12/29/21 17:53 Sulfa (Sulfonamide Allergy Severe Anaphylaxis Verified 12/29/21 17:53 Antibiotics) pneumococcal vaccine Allergy Headache Verified 12/29/21 17:53 [From Pneumovax-23] sucralfate [From Carafate] Allergy Unknown Verified 12/29/21 17:53 - Social History Does the pt smoke?: No Smoking Status: Never smoker Does the pt drink ETOH?: Yes Does the pt have substance abuse?: No - Immunizations Immunizations are current?: Yes - POLST Patient has POLST: No POLST Status: Full Code PD ED PE NORMAL - Vitals Vital signs reviewed: Yes - General General: Alert and oriented X 3, Well developed/nourished, Other (Patient is mildly anxious but otherwise no apparent distress.) - HEENT HEENT: Atraumatic, PERRL, EOMI, Moist mucous membranes - Neck Neck: Supple, no meningeal sign - Cardiac Cardiac: RRR, No murmur, Strong equal pulses - Respiratory Respiratory: No respiratory distress, Clear bilaterally - Abdomen Abdomen: Soft, Non tender, Non distended - Derm Derm: Normal color, Warm and dry, No rash - Extremities Extremities: No deformity, No edema - Neuro Neuro: Alert and oriented X 3, supervisor plastic sheets 2-12 intact, No sensory deficit, Other (By the time of my evaluation, patient speaks with stuttering speech occasionally with word finding difficulties, but can keep a stream of conversation going. 5+ strength bilateral upper and lower extremities weaker on right than left.) - Psych Psych: Normal mood, Normal affect Results - Vitals Vitals: Oxygen O2 Source Room air - Labs Labs: Laboratory Tests 12/29/21 12/29/21 12/29/21 17:49 17:49 17:49 WBC 5.4 RBC 3.68 L Hgb 11.7 L Hct 35.4 L MCV 96.2 MCH 31.8 H MCHC 33.1 RDW 12.3 Plt Count 254 MPV 9.8 Neut # (Auto) 2.8 Lymph # (Auto) 1.8 [place] # (Auto) 0.7 Eos # (Auto) 0.1 Baso # (Auto) 0.1 Absolute Nucleated RBC 0.00 Nucleated RBC % 0.0 PT 11.9 INR 1.1 Sodium 133 L Potassium 3.6 Chloride 99 L Carbon Dioxide 22 Anion Gap 12.0 BUN 15 Creatinine 0.6 Estimated GFR (MDRD) 99 Glucose 82 Calcium 9.7 Total Bilirubin 0.5 AST 37 ALT 25 Alkaline Phosphatase 59 Total Protein 8.0 Albumin 4.6 Globulin 3.4 Albumin/Globulin Ratio 1.4 Lipase 33 - Rads (name of study) CT/CTA head Radiology: Final report received, EMP read indepedently, See rad report (neg) CTA neck Radiology: Final report received, EMP read indepedently, See rad report PD MEDICAL DECISION MAKING - ED course Complexity details: reviewed results, re-evaluated patient, considered differential, d/w patient ED course: The patient was evaluated immediately upon arrival in the emergency department by myself. I was concerned about her findings initially and felt that she should be worked up with CT scan of the brain, as well as CT is of the head and neck. After arranging to send the patient for these, the patient mentioned that she had had the symptoms previously after having a seizure. However, she had not had a seizure in over a year and did not have any hemiplegia the last time. Because the pt was within the window for tPA and had significant deficits, we did go ahead with the studies, all of which were negative. The pt improved drastically over her stay in the ED, and other than feeling a little tired, was completely back to baseline on re-evaluation. I felt she was stable for d/c home. We have discussed the usual indications for return. Departure - Departure Disposition: Home, Self Care Clinical Impression: Post-ictal hemiplegia, Post-ictal aphasia, Seizure Condition: Stable Instructions: ED Seizure Recurrent Comments: Your CT scans, including angiograms of the neck and brain, look good today. There is no evidence of a blockage of any of the vessels in your neck or your brain. As such, your symptoms are most likely related to the postictal phase after your seizure and to the borderline low blood sugar that you had. Please continue your home seizure meds and make sure that you have plenty of snacks to eat if you are concerned about your sugar dropping low. If you continue to have these episodes more frequently than usual, please make a follow-up appointment with your neurologist to have further specialty evaluation. Discharge Date/Time: 12/29/21 19:11
[2021-12-29 19:11] VITALS: BP 159/93
== END 2021-12-29 19:11 | disposition home or self-care (01) ==
LOC: EDUNIT# → ED 17:40
DX: R47.01 Aphasia (principal); G83.84 Todd's paralysis (postepileptic); R56.9 Unspecified convulsions
CPT/HCPCS: 36415; 70496; 70498; 80053; 83690; 85025; 85610; 99283; 99284; Q9967

== ENCOUNTER 2022-03-17 09:06 | Outpatient (CLI) | payer MEDICARE, OTHER ==
[2022-03-17 09:21] LABS: BASOPHILS % (AUTO) 0.7 %; EOSINOPHILS # (AUTO) 0.2 10^3/uL (0.0-0.7); EOSINOPHILS % (AUTO) 2.6 %; HCT - HEMATOCRIT 35.2 % (37.0-47.0); HGB - HEMOGLOBIN 11.9 g/dL (12.0-16.0); LYMPHOCYTES # (AUTO) 1.3 10^3/uL (1.5-3.5); LYMPHOCYTES % (AUTO) 21.4 %; MEAN CORPUSCULAR HEMOGLOBIN 31.8 pg (27.0-31.0); MEAN CORPUSCULAR HGB CONC 33.8 g/dL (32.0-36.0); MEAN CORPUSCULAR VOLUME 94.1 fL (81.0-99.0); MONOCYTES # (AUTO) 0.5 10^3/uL (0.0-1.0); MONOCYTES % (AUTO) 8.1 %; NEUTROPHILS # (AUTO) 4.1 10^3/uL (1.5-6.6); PLT - PLATELET COUNT 261 10^3/uL (130-450); RED BLOOD COUNT 3.74 10^6/uL (4.20-5.40); RED CELL DISTRIBUTION WIDTH 12.8 % (12.0-15.0); WHITE BLOOD COUNT 6.1 x10^3/uL (4.8-10.8)
[2022-03-17 09:40] LABS: ALBUMIN 4.1 g/dL (3.2-5.5); ALBUMIN/GLOBULIN RATIO 1.3 (1.0-2.2); ALKALINE PHOSPHATASE 56 IU/L (42-121); ALT ALANINE AMINOTRANSFERASE 22 IU/L (10-60); AST ASPARTATE AMINOTRANSFERASE 29 IU/L (10-42); BILIRUBIN,TOTAL 0.7 mg/dL (0.2-1.0); BUN - BLOOD UREA NITROGEN 17 mg/dL (6-20); CALCIUM 9.3 mg/dL (8.5-10.3); CARBON DIOXIDE - CO2 27 mmol/L (21-32); CHLORIDE 101 mmol/L (101-111); CHOL/HDL RATIO 1.9 (<4.4); CHOLESTEROL 194 mg/dL; CREATININE 0.7 mg/dL (0.4-1.0); GFR - MDRD 83 (>89); GLUCOSE 96 mg/dL (70-100); HDL CHOLESTEROL 100 mg/dL; POTASSIUM 3.8 mmol/L (3.5-5.0); SODIUM 136 mmol/L (135-145); TOTAL PROTEIN 7.3 g/dL (6.7-8.2); TRIGLYCERIDES 39 mg/dL
== END 2022-03-17 09:07 | disposition home or self-care (01) ==
LOC: LAB 09:06
PROVIDERS: ATTEND Internal Medicine
DX: Z00.00 Encounter for general adult medical examination without abnormal findings (principal); R10.9 Unspecified abdominal pain; D64.9 Anemia, unspecified; D32.0 Benign neoplasm of cerebral meninges; I25.10 Atherosclerotic heart disease of native coronary artery without angina pectoris; Z90.49 Acquired absence of other specified parts of digestive tract; E16.2 Hypoglycemia, unspecified; J45.909 Unspecified asthma, uncomplicated; Z12.12 Encounter for screening for malignant neoplasm of rectum; R56.9 Unspecified convulsions; Z12.11 Encounter for screening for malignant neoplasm of colon; G83.84 Todd's paralysis (postepileptic)
CPT/HCPCS: 36415; 80053; 80061; 83721; 84443; 85025

== ENCOUNTER 2022-04-19 11:54 | Emergency (ER) | payer MEDICARE, OTHER ==
--- NOTE | 2022-04-19 12:06 | ED Physician Documentation ---
PD HPI ABD PAIN - Stated complaint Stated Complaint: ABD PX - Chief complaint Chief Complaint: Abd Pain - History obtained from History obtained from: Patient - History of Present Illness Timing - onset: Today Timing - duration: Minutes Timing - details: Abrupt onset (was at dentist to get 2 teeth removed/crowns and had just gotten injected with lido and developed epigastric severe pain. Dentist called EMS. Pain improved enroute.), Now resolved Quality: Cramping, Aching, Pain Location: RUQ, Epigastric Radiation: No: Right flank, Upper back Worsened by: Breathing, Palpation Associated symptoms: Nausea. No: Fever, Vomiting, Diarrhea, Constipation Similar symptoms before: No diagnosis (has had some epigastric pains with eating and reflux buring feeling at times. No meds currently for it.) Recently seen: Clinic (seen by PMD with labs done and suggestion for upper/lower scopes but patient reluctant.) Review of Systems Constitutional: denies: Fever, Chills Nose: denies: Rhinorrhea / runny nose, Congestion Throat: denies: Sore throat Respiratory: denies: Cough GI: reports: Abdominal Pain, Nausea. denies: Abdominal Swelling, Vomiting, Constipation, Diarrhea, Bloody / black stool Skin: denies: Rash, Lesions Musculoskeletal: denies: Extremity swelling Neurologic: reports: Generalized weakness. 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 Neuro: Craniotomy HEENT: Cataracts - Present Medications Home Medications: Ambulatory Orders Medication Instructions Recorded Confirmed Albuterol 2.5 mg INH Q4H PRN 06/28/13 06/24/21 Levetiracetam [Levetiracetam ER] 500 mg PO BID 06/28/13 06/24/21 Temazepam [Restoril] 30 mg PO HS 06/28/13 06/19/21 diphenhydrAMINE [Benadryl] 50 mg PO HS PRN 06/28/13 06/19/21 Lacosamide [Vimpat] 100 mg PO BID 06/02/21 06/24/21 Amitriptyline HCl 50 mg PO QPM PRN 06/19/21 06/24/21 HYDROcod/ACETAM 5/325 [[place] 5/325] 1 each PO Q6H PRN #25 tablet 06/24/21 Ondansetron Odt [Zofran Odt] 4 mg PO Q6H PRN #15 tablet 06/24/21 oxyCODONE/ACET 5/325 [Percocet 5 1 each PO Q4-6H PRN #15 tablet 06/24/21 mg/325 mg] - Allergies Allergies/Adverse Reactions: Allergies Allergy/AdvReac Type Severity Reaction Status Date / Time Influenza Virus Vaccines Allergy Severe Anxiety Verified 04/19/22 12:03 Sulfa (Sulfonamide Allergy Severe Anaphylaxis Verified 04/19/22 12:03 Antibiotics) pneumococcal vaccine Allergy Headache Verified 04/19/22 12:03 [From Pneumovax-23] sucralfate [From Carafate] Allergy Unknown Verified 04/19/22 12:03 - Social History Does the pt smoke?: No Smoking Status: Never smoker Does the pt drink ETOH?: Yes Does the pt have substance abuse?: No - Immunizations Immunizations are current?: Yes - POLST Patient has POLST: No POLST Status: Full Code PD ED PE NORMAL - Vitals Vital signs reviewed: Yes - General General: Alert and oriented X 3, No acute distress. No: Well developed/nourished (somewaht frail/thin looking) - HEENT HEENT: Pharynx benign - Neck Neck: Supple, no meningeal sign, No adenopathy - Cardiac Cardiac: RRR, No murmur - Respiratory Respiratory: Clear bilaterally - Abdomen Abdomen: Normal bowel sounds, Soft, Non distended, No organomegaly, Other (some tenderness epigastric area with local guarding. ) - Derm Derm: Normal color, Warm and dry - Extremities Extremities: Normal ROM s pain, No edema, No calf tenderness / cord - Neuro Neuro: Alert and oriented X 3, No motor deficit, Normal speech Results - Vitals Vitals: Oxygen O2 Source Room air - EKG (time done) 12:49 Rate: Rate (enter#) (690) Rhythm: NSR [place]: Normal Intervals: Normal [place] QRS: Normal Ischemia: Normal ST segments. No: ST elevation c/w ischemia, ST depression - Labs Labs: Laboratory Tests 04/19/22 04/19/22 04/19/22 13:11 13:11 13:11 WBC 6.2 RBC 3.62 L Hgb 11.6 L Hct 36.4 L MCV 100.6 H MCH 32.0 H MCHC 31.9 L RDW 13.6 Plt Count 223 MPV 9.8 Neut # (Auto) 4.3 Lymph # (Auto) 1.0 L [place] # (Auto) 0.5 Eos # (Auto) 0.3 Baso # (Auto) 0.1 Absolute Nucleated RBC 0.00 Nucleated RBC % 0.0 Sodium 137 Potassium 3.9 Chloride 104 Carbon Dioxide 23 Anion Gap 10.0 BUN 16 Creatinine 0.5 Estimated GFR (MDRD) 122 Glucose 85 Calcium 9.0 Magnesium 1.7 Total Bilirubin 0.4 AST 29 ALT 20 Alkaline Phosphatase 59 Troponin I High Sens 4.3 Total Protein 6.7 Albumin 3.9 Globulin 2.8 Albumin/Globulin Ratio 1.4 Lipase 31 Urine Color Urine Clarity Urine pH Ur Specific [place] Urine Protein Urine Glucose (UA) Urine Ketones Urine Occult Blood Urine Nitrite Urine Bilirubin Urine Urobilinogen Ur Leukocyte Esterase Ur Microscopic Review Urine Culture Comments 04/19/22 14:15 WBC RBC Hgb Hct MCV MCH MCHC RDW Plt Count MPV Neut # (Auto) Lymph # (Auto) [place] # (Auto) Eos # (Auto) Baso # (Auto) Absolute Nucleated RBC Nucleated RBC % Sodium Potassium Chloride Carbon Dioxide Anion Gap BUN Creatinine Estimated GFR (MDRD) Glucose Calcium Magnesium Total Bilirubin AST ALT Alkaline Phosphatase Troponin I High Sens Total Protein Albumin Globulin Albumin/Globulin Ratio Lipase Urine Color YELLOW Urine Clarity CLEAR Urine pH 6.0 Ur Specific [place] 1.025 Urine Protein NEGATIVE Urine Glucose (UA) NEGATIVE Urine Ketones NEGATIVE Urine Occult Blood NEGATIVE Urine Nitrite NEGATIVE Urine Bilirubin NEGATIVE Urine Urobilinogen 0.2 (NORMAL) Ur Leukocyte Esterase NEGATIVE Ur Microscopic Review NOT INDICATED Urine Culture Comments NOT INDICATED - Rads (name of study) abd/pelvic CT Radiology: Prelim report reviewed (small bowel wall thickening, consider enteritis. ovarian cyst noted with outpt workup suggested. ), See rad report PD MEDICAL DECISION MAKING - ED course Complexity details: reviewed results, considered differential (epigastric pain so consider gastritis/reflux. Also consider bile duct process, pancreatic, vascular/aortic. Has had some recent weight loss so consider tumor/etc as well. Can get labs/ct. Had pain onset abrupt as well, so consider atypical [place]. ), d/w patient Departure - Departure Disposition: 01 Home, Self Care Clinical Impression: Abdominal pain Qualifiers: Abdominal location: periumbilical Qualified Code(s): R10.33 - Periumbilical pain Condition: Stable Record reviewed to determine appropriate education?: Yes Instructions: ED Abdominal Pain Female Non-Specific Abdominal Pain Follow-Up: Marylou Muniz MD [Primary Care Provider] - Comments: There is no signs of more significant causes for the pain that you had at the dentist office. Your EKG and troponin are normal so no signs of heart attack or acute heart process. The CT of your abdomen showed some mild wall thickening in the small intestine that could go along with an infectious or inflammatory process. No signs however of obstruction or perforation or local infection such as diverticulitis. You do have incidental cyst on your right ovary which does not look like it should be causing a problem at this time. Recommendation was a follow-up ultrasound in the near future to look for resolution. Follow-up with Dr. Muniz. Do the stool studies that have been recommended and ordered by Dr. Muniz. Consider some Tylenol every 4-6 hours to help with pains. Small frequent fluids for sure to maintain hydration. Regular diet as you normally do. Discharge Date/Time: 04/19/22 15:58
[2022-04-19] MEDS ORDERED: ONDANSETRON 4 MG/2 ML VIAL IVP STA (12:40)
[2022-04-19] MEDS ORDERED: KETOROLAC 15 MG/ML VIAL IVP STA (12:40)
[2022-04-19] MEDS ORDERED: SODIUM CHLORIDE 0.9% 1,000 ML IV STA (12:40)
[2022-04-19] MEDS ORDERED: MAG HYDROX/AL HYDROX/SIMETH 30 ML UDC PO STA (12:41)
[2022-04-19 13:17] LABS: BASOPHILS # (AUTO) 0.1 10^3/uL (0.0-0.1); BASOPHILS % (AUTO) 0.8 %; EOSINOPHILS # (AUTO) 0.3 10^3/uL (0.0-0.7); EOSINOPHILS % (AUTO) 4.2 %; HCT - HEMATOCRIT 36.4 % (37.0-47.0); HGB - HEMOGLOBIN 11.6 g/dL (12.0-16.0); LYMPHOCYTES % (AUTO) 16.7 %; MEAN CORPUSCULAR HGB CONC 31.9 g/dL (32.0-36.0); MEAN CORPUSCULAR VOLUME 100.6 fL (81.0-99.0); MEAN PLATELET VOLUME 9.8 fL (7.9-10.8); MONOCYTES # (AUTO) 0.5 10^3/uL (0.0-1.0); MONOCYTES % (AUTO) 8.6 %; NEUTROPHILS # (AUTO) 4.3 10^3/uL (1.5-6.6); NEUTROPHILS % (AUTO) 69.5 %; PLT - PLATELET COUNT 223 10^3/uL (130-450); RED BLOOD COUNT 3.62 10^6/uL (4.20-5.40); RED CELL DISTRIBUTION WIDTH 13.6 % (12.0-15.0); WHITE BLOOD COUNT 6.2 x10^3/uL (4.8-10.8)
[2022-04-19 13:32] LABS: ALBUMIN 3.9 g/dL (3.2-5.5); ALBUMIN/GLOBULIN RATIO 1.4 (1.0-2.2); BILIRUBIN,TOTAL 0.4 mg/dL (0.2-1.0); CREATININE 0.5 mg/dL (0.4-1.0); MAGNESIUM 1.7 mg/dL (1.7-2.8); POTASSIUM 3.9 mmol/L (3.5-5.0); TOTAL PROTEIN 6.7 g/dL (6.7-8.2)
[2022-04-19 14:31] LABS: BILIRUBIN,URINE NEGATIVE (NEGATIVE); GLUCOSE, URINE (UA) NEGATIVE (NEGATIVE); KETONES,URINE (UA) NEGATIVE (NEGATIVE); LEUKOCYTE ESTERASE, URINE NEGATIVE (NEGATIVE); NITRITE,URINE NEGATIVE (NEGATIVE); OCCULT BLOOD,URINE NEGATIVE (NEGATIVE); PROTEIN,URINE NEGATIVE (NEGATIVE); UROBILINOGEN,URINE 0.2 (NORMAL) E.U./dL (NORMAL)
[2022-04-19 14:32] LABS: CLARITY,URINE CLEAR (CLEAR)
--- NOTE | 2022-04-19 15:19 | CT Report ---
PROCEDURE: CT abdomen and pelvis with contrast INDICATIONS: Abdominal pain, acute, nonlocalized CONTRAST: IV CONTRAST: Optiray 320 ml: 100 PO CONTRAST: *NO PO CONTRAST TECHNIQUE: After the administration of contrast, 5 mm thick sections acquired from the diaphragms to the sym physis. 5 mm thick coronal and sagittal reformats were acquired. For radiation dose reduction, the following was used: automated exposure control, adjustment of mA and/or kV according to patient size . COMPARISON: 07/02/2013 FINDINGS: Image quality: Excellent. ABDOMEN: Lung bases: Lung bases are clear. Heart size is normal. Solid organs: Liver and spleen are normal in size and enhancement. Gallbladder surgically absent. Biliary system is non dilated. Pancreas enhances normally. No adrenal nodules. Kidneys demonstrate normal size and enhancement, without hydronephrosis. Bilateral renal scarring Peritoneum and bowel: Bowel loops demonstrate normal wall thickness and caliber. No free fluid or a ir. Mild wall enhancement and fluid distention of small bowel without obstruction. Nodes and vessels: No retroperitoneal or mesenteric adenopathy by size criteria. Aorta and inferior vena cava are normal in size. Miscellaneous: No ventral hernias. PELVIS: Genitourinary: Bladder wall thickness is normal. Several cysts noted in the right adnexa measuring up to 4.7 cm Miscellaneous: No inguinal hernias or adenopathy. Bones: No suspicious bony lesions. No vertebral body compression fractures. Multilevel generative disc disease and arthropathy in the lower lumbar spine. IMPRESSION: 1. Mild wall enhancement and fluid distention of small bowel may reflect ileus or enteritis. No evide nce of obstruction. 2. Right adnexal cystic structure measures 3.2 x 4.7 cm. Consider follow-up ultrasound or MRI for fur ther characterization 3. Chronic degenerative changes as above Reviewed by: Patrick Merino MD on 04/19/2022 2:18 PM AKDORA Approved by: Patrick Merino MD on 04/19/2022 2:18 PM AKDT Station ID: [id number]
[2022-04-19 16:01] VITALS: BP 130/80
== END 2022-04-19 15:58 | disposition home or self-care (01) ==
LOC: EDUNIT# → ED 11:54
DX: R10.33 Periumbilical pain (principal)
CPT/HCPCS: 36415; 74177; 80053; 81003; 83690; 83735; 84484; 85025; 93005; 96374; 99284; A9270; Q9967; 81001; 87086

== ENCOUNTER 2022-05-17 12:23 | Outpatient (CLI) | payer MEDICARE, OTHER ==
--- NOTE | 2022-05-17 16:53 | DEXA Report ---
PROCEDURE: Dexa Spine and/or Hip INDICATIONS: OSTEOPOROSIS TECHNIQUE: Dual energy x-ray absorptiometry (DXA) was performed on a [employer] System. Regions measur ed are the AP Spine, femoral neck, and if needed forearm. COMPARISON: None. 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 Patients with diagnosis of osteoporosis or osteopenia should have regular bone mineral density assess ment. For those eligible for Medicare, routine testing is allowed once every 2 years. Testing frequ ency can be increased for patients who have rapidly progressing disease or for those who are receivin g medical therapy to restore bone mass. Reviewed by: Maggie Waite MD on 05/17/2022 4:52 PM PDT Approved by: Maggie Waite MD on 05/17/2022 4:52 PM PDT Station ID: [id number]
== END 2022-05-17 12:24 | disposition home or self-care (01) ==
LOC: DI 12:23
PROVIDERS: ATTEND Internal Medicine
DX: M81.0 Age-related osteoporosis without current pathological fracture (principal)

== ENCOUNTER 2022-05-21 16:14 | Outpatient (CLI) | payer MEDICARE, OTHER ==
--- NOTE | 2022-05-24 12:10 | Ultrasound Report ---
PROCEDURE: Pelvic w/Transvaginal INDICATIONS: OVARIAN CYST TECHNIQUE: Real-time scanning was performed of the pelvic organs, with image documentation. Additional endovagi nal scanning was necessary due to incomplete visualization of the adnexal and endometrial structures by transabdominal scanning. COMPARISON: CT abdomen pelvis 04/19/2022 FINDINGS: Uterus: Uterus is retroverted and normal in size for age at 4.7 x 3.2 x 3.5 cm. The myometrium is h omogeneous. There are several peripheral uterine vascular calcifications.. The endometrium measures 3.7 mm in combined thickness. A small amount of simple fluid distends the endometrial canal. There i s echogenic endoluminal polypoid mass measuring 0.8 x 0.5 x 0.9 cm arising from the anterior wall of the endometrium. No visible vascular stalk. Ovaries: The right ovary measures 4.5 x 4.1 x 5.4 cm, with a calculated ovarian volume of 40.1 cc. The left ovary measures 1.3 x 1.0 x 0.5 cm, with a calculated ovarian volume of 0.3 cc. There are 2 c losely opposed anechoic cysts versus septated single cyst within the right ovary. There is a daughter cyst along one wall. The largest cyst measures 3.5 cm maximally. The next measures 2.8 cm. No vascul ar flow in the intervening septation. The left ovary is atrophic, age-appropriate. No other adnexal m asses are seen. Other: No pathologic free abdominal or pelvic fluid. IMPRESSION: 1. Cluster of unilocular cysts or multicystic mass in the right ovary. No significant solid component or hypervascularity. This is atypical for patient's age. While these may be physiologic, residual cy sts, cystic neoplasm is not excluded. Gynecologic consult and/or close follow-up is recommended. 2. 9 mm endometrial polyp without significant vascularity. Reviewed by: Tamara Littlejohn MD on 05/24/2022 12:08 PM PST Approved by: Tamara Littlejohn MD on 05/24/2022 12:08 PM PST Station ID: [id number]
== END 2022-05-21 16:15 | disposition home or self-care (01) ==
LOC: DI 16:14
PROVIDERS: ATTEND Internal Medicine
DX: N83.201 Unspecified ovarian cyst, right side (principal); N84.0 Polyp of corpus uteri

== ENCOUNTER 2022-06-16 12:43 | Outpatient (CLI) | payer MEDICARE, OTHER | END 2022-06-16 12:44 | disposition home or self-care (01) | LOC: LAB 12:43 | PROVIDERS: ATTEND Obstetrics & Gynecology | DX: N83.291 Other ovarian cyst, right side (principal) | CPT/HCPCS: 36415; 86304 ==

== ENCOUNTER 2022-08-09 13:44 | Outpatient (CLI) | payer MEDICARE, OTHER ==
--- NOTE | 2022-08-09 17:38 | Ultrasound Report ---
PROCEDURE: Pelvic w/Transvaginal INDICATIONS: OVARIAN CYST TECHNIQUE: Real-time scanning was performed of the pelvic organs, with image documentation. Additional endovagi nal scanning was necessary due to incomplete visualization of the adnexal and endometrial structures by transabdominal scanning. COMPARISON: Pelvic ultrasound 05/21/2022, CT abdomen pelvis 04/19/2022. FINDINGS: Uterus: Uterus is retroverted and normal in size at 4.9 x 3.7 x 2.3 cm. The myometrium is heterogen eous. No fibroids. The endometrium measures 2 mm in combined thickness. Fluid in the endometrial ca nal. Nodule within the endometrial canal measuring 0.9 x 0.8 x 0.6 cm. No internal vascularity is gaetano reciated. Ovaries: The right ovary measures 4.7 x 3.5 x 2.8 cm, with a calculated ovarian volume of 24 cc. Right ovarian septated cyst measuring of 4.9 x 3.5 x 2.5 cm, estimated volume of 22 cc. (Previously 5 .1 x 3.2 x 3.2 cm estimated volume of [address] 04/19/2022). No internal vascularity. The septation is thin. Mild daughter cysts. The left ovary is not visualized. Other: No pathologic free abdominal or pelvic fluid. IMPRESSION: 1. Right ovarian cyst with thin septation and daughter cyst measuring 4.9 cm, decreased compared to C T April 2022. 2. Endometrial nodule measuring 0.9 cm is unchanged. No internal vascularity is seen. This most likel y represents an endometrial polyp. 3. Left ovary is not seen. Reviewed by: Veto Dale MD on 08/09/2022 5:37 PM PST Approved by: Veto Dale MD on 08/09/2022 5:37 PM PST Station ID: [id number]
== END 2022-08-09 13:45 | disposition home or self-care (01) ==
LOC: DI 13:44
PROVIDERS: ATTEND Obstetrics & Gynecology
DX: N83.291 Other ovarian cyst, right side (principal); N85.9 Noninflammatory disorder of uterus, unspecified

== ENCOUNTER 2023-02-14 13:19 | Outpatient (CLI) | payer MEDICARE, OTHER ==
--- NOTE | 2023-02-15 08:17 | Ultrasound Report ---
PROCEDURE: Pelvic w/Transvaginal INDICATIONS: OVARIAN CYST TECHNIQUE: Real-time scanning was performed of the pelvic organs, with image documentation. Additional endovagi nal scanning was necessary due to incomplete visualization of the adnexal and endometrial structures by transabdominal scanning. COMPARISON: Ultrasound pelvis with transvaginal, 08/09/2022. FINDINGS: Uterus: Uterus is anteverted and normal in size at 5.2 x 2.2 x 3.0 cm. The myometrium is homogeneou s. The endometrium measures 4.7 mm in combined thickness. There is a 0.9 cm endometrial polyp. Ovaries: The right ovary measures 4.6 x 3.3 x 4.1 cm, with a calculated ovarian volume of 32.4 cc. The left ovary measures 1.7 x 0.9 x 0.9 cm, with a calculated ovarian volume of 0.7 cc. The ovaries have a normal sonographic appearance. Less than 12 follicles can be seen in each ovary. There is a s eptated cyst in the right ovary measuring 4.4 cm. No cystic lesions measuring greater than 3 cm. Other: No pathologic free abdominal or pelvic fluid. IMPRESSION: 1. Persistent complex cyst with internal septation measuring 4.4 cm. 2. A 0.9 cm endometrial polyp. Reviewed by: Ag James MD on 02/15/2023 8:16 AM PDT Approved by: Ag James MD on 02/15/2023 8:16 AM PDT Station ID: [id number]
== END 2023-02-14 13:20 | disposition home or self-care (01) ==
LOC: DI 13:19
PROVIDERS: ATTEND Obstetrics & Gynecology
DX: N83.291 Other ovarian cyst, right side (principal); N84.0 Polyp of corpus uteri

== ENCOUNTER 2023-06-07 16:28 | Outpatient (CLI) | payer MEDICARE, OTHER ==
--- NOTE | 2023-06-08 16:00 | XRAY Report ---
PROCEDURE: Femur 2V RT INDICATIONS: THIGH PAIN TECHNIQUE: 2 views of the femur were acquired. COMPARISON: None. FINDINGS: Bones: No fractures or dislocations. A sclerotic lesion in the intertrochanteric bone is unchanged compared to a prior CT in 2013 and is considered benign. No suspicious bony lesions. Soft tissues: No suspicious soft tissue calcifications or masses. IMPRESSION: No acute bony abnormality. Reviewed by: Kofi Boateng on 06/08/2023 3:58 PM PST Approved by: Kofi Boateng on 06/08/2023 3:58 PM [facility] Station ID: [id number]
== END 2023-06-07 16:29 | disposition home or self-care (01) ==
LOC: DI 16:28
PROVIDERS: ATTEND Internal Medicine
DX: M79.651 Pain in right thigh (principal)

== ENCOUNTER 2023-08-08 14:39 | Outpatient (CLI) | payer MEDICARE, OTHER ==
--- NOTE | 2023-08-08 16:39 | CT Report ---
PROCEDURE: Head WO INDICATIONS: IMPAIRED MEMORY TECHNIQUE: Noncontrast 4.5 mm thick angled axial sections acquired from the foramen magnum to the vertex. For r adiation dose reduction, the following was used: automated exposure control, adjustment of mA and/or kV according to patient size. COMPARISON: CTA head and neck 12/29/2021 FINDINGS: Image quality: Excellent. The ventricular system and cortical sulci demonstrate atrophy, consistent for patient's stated age. There are areas of hypodensity in the periventricular and subcortical white matter. There is no acut e intra or extra-axial fluid collection. No acute hemorrhage, mass lesion or midline shift. Brainst em is unremarkable. Postsurgical changes reflecting left posterior temporal parietal lobe. Globes are symmetrical. Sinuses are aerated. Osseous structures are intact, except noting posterior c alvarial postsurgical changes above. IMPRESSION: 1. No acute intracranial process. 2. Moderate atrophy and chronic microvascular ischemic changes. Reviewed by: Yanira Salinas MD on 08/08/2023 4:38 PM PST Approved by: Yanira Salinas MD on 08/08/2023 4:38 PM PST Station ID: [id number]
== END 2023-08-08 14:40 | disposition home or self-care (01) ==
LOC: DI 14:39
PROVIDERS: ATTEND Internal Medicine
DX: R41.3 Other amnesia (principal)

== ENCOUNTER 2023-11-16 10:44 | Outpatient (CLI) | payer MEDICARE, OTHER | END 2023-11-16 23:59 | disposition critical access hospital (66) | LOC: EMS 10:44 | DX: M25.551 Pain in right hip (principal); W01.0XXA Fall on same level from slipping, tripping and stumbling without subsequent striking against object, initial encounter; Y92.008 Other place in unspecified non-institutional (private) residence as the place of occurrence of the external cause | CPT/HCPCS: A0425; A0427 ==

== ENCOUNTER 2023-11-16 10:59 | Inpatient (IN) | payer MEDICARE, OTHER ==
--- NOTE | 2023-11-16 11:02 | ED Physician Documentation ---
PD HPI LOWER EXT INJURY - Stated complaint Stated Complaint: GLF/L HIP PX - History obtained from History obtained from: Patient, EMS - History of Present Illness PD HPI LOW EXT INJURY LOCATION: Right, Hip Type of injury: Fall (tripped over dog's leash, landing forward onto knees with some pain left knee but mostly right hip. 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) Timing - details: Abrupt onset, Still present Improved by: Rest (but still hurting) Worsened by: Moving, Palpating Associated symptoms: No: Weakness, Numbness Contributing factors: No: Anticoagulated Similar symptoms before: Has not had sx before Review of Systems Constitutional: denies: Fever, Chills Throat: denies: Sore throat Cardiac: denies: Chest pain / pressure, Palpitations, Pedal edema, Calf pain Respiratory: denies: Dyspnea, Cough GI: denies: Abdominal Pain, Nausea, Vomiting Neurologic: denies: Focal weakness, Numbness, Altered mental status, Headache, Head injury PD PAST MEDICAL HISTORY - Past Medical History Cardiovascular: [place] Respiratory: Asthma Neuro: Seizure disorder (without any recent seizures in past year.) Endocrine/Autoimmune: None, Other (hypoglycemia and needs to eat often) GI: Chronic diarrhea : None HEENT: None Psych: None Musculoskeletal: Osteoarthritis Derm: None - Past Surgical History Past Surgical History: Yes 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: Tubal 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 Neuro: Craniotomy HEENT: Cataracts - Present Medications Home Medications: Ambulatory Orders Medication Instructions Recorded Confirmed Temazepam [Restoril] 30 mg PO HS PRN 06/28/13 11/16/23 Lacosamide [Vimpat] 100 mg PO BID 06/02/21 11/16/23 Amitriptyline HCl 50 mg PO QPM PRN 06/19/21 11/16/23 Levetiracetam [Keppra] 750 mg PO BID 11/16/23 11/16/23 Pantoprazole Sodium 20 mg PO DAILY 11/16/23 11/16/23 - Allergies Allergies/Adverse Reactions: Allergies Allergy/AdvReac Type Severity Reaction Status Date / Time Influenza Virus Vaccines Allergy Severe Anxiety Verified 11/16/23 11:07 Sulfa (Sulfonamide Allergy Severe Anaphylaxis Verified 11/16/23 11:07 Antibiotics) pneumococcal vaccine Allergy Headache Verified 11/16/23 11:07 [From Pneumovax-23] sucralfate [From Carafate] Allergy Unknown Verified 11/16/23 11:07 - Social History Does the pt smoke?: No Smoking Status: Never smoker Does the pt drink ETOH?: Yes Does the pt have substance abuse?: No - Immunizations Immunizations are current?: Yes - POLST Patient has POLST: No POLST Status: Full Code PD ED PE NORMAL - Vitals Vital signs reviewed: Yes - General General: Alert and oriented X 3, Well developed/nourished. No: No acute distress (appears in significatn pain with any movement of the hip/right lower leg. ) - HEENT HEENT: Atraumatic - Neck Neck: Supple, no meningeal sign, No bony TTP, No adenopathy - Cardiac Cardiac: RRR, No murmur - Respiratory Respiratory: No respiratory distress, Clear bilaterally - Abdomen Abdomen: Soft, Non tender - Back Back: No spinal TTP - Derm Derm: Normal color, Warm and dry - Extremities Extremities: Other (left knee with mild anterior tenderness at knee without deformity. Good ROm of the knee and hip without pain. Right hip with pain on even slight movement and also impaction, rotation. ) - Neuro Neuro: Alert and oriented X 3, No motor deficit, No sensory deficit, Normal speech Results - Vitals Vitals: Vital Signs - 24 hr 11/16/23 11/16/23 11/16/23 10:59 12:27 15:18 Temperature 37.0 C Heart Rate 88 89 86 Respiratory 18 20 20 Rate Blood Pressure 139/83 H 140/93 H O2 Saturation 96 97 98 Oxygen O2 Source Room air - EKG (time done) 14:29 EKG releavant findings:: EKG personally interpreted by author of this note. Relevant findings are: Rate: Rate (enter#) (89) Rhythm: NSR [place]: Normal Intervals: Normal LA QRS: Normal Ischemia: Normal ST segments. No: ST elevation c/w ischemia, ST depression - Labs Labs: Laboratory Tests 11/16/23 11/16/23 11/16/23 14:24 14:24 15:21 WBC 8.6 RBC 3.63 L Hgb 11.4 L Hct 35.2 L MCV 97.0 MCH 31.4 H MCHC 32.4 RDW 12.0 Plt Count 222 MPV 9.3 Neut # (Auto) 6.7 H Lymph # (Auto) 1.2 L [place] # (Auto) 0.5 Eos # (Auto) 0.2 Baso # (Auto) 0.1 Absolute Nucleated RBC 0.00 Nucleated RBC % 0.0 Sodium 133 L Potassium 3.9 Chloride 101 Carbon Dioxide 25 Anion Gap 7.0 BUN 19 Creatinine 0.7 Estimated GFR (MDRD) 82 L Glucose 97 Calcium 9.4 Magnesium 1.7 Total Bilirubin 0.4 AST 24 ALT 17 Alkaline Phosphatase 71 Total Protein 6.9 Albumin 4.1 Globulin 2.8 Albumin/Globulin Ratio 1.5 Lipase 19 Urine Color YELLOW Urine Clarity CLEAR Urine pH 6.0 Ur Specific [place] 1.015 Urine Protein NEGATIVE Urine Glucose (UA) NEGATIVE Urine Ketones TRACE Urine Occult Blood NEGATIVE Urine Nitrite NEGATIVE Urine Bilirubin NEGATIVE Urine Urobilinogen 0.2 (NORMAL) Ur Leukocyte Esterase NEGATIVE Ur Microscopic Review NOT INDICATED Urine Culture Comments NOT INDICATED - Rads (name of study) No standard instances Relevant Findings:: Prelim report reviewed (Normall hip xray), EMP independent interpretation of test (suspicion for cortical irregular at femoral neck medially. Will get CT due to high clinical susupicion.) femur right Relevant Findings:: Prelim report reviewed, EMP independent interpretation of test (normal shaft and lower aspect of femur) right hip CT with pelvis Relevant Findings:: Prelim report reviewed (impacted femoral neck fracture), EMP independent interpretation of test (impacted nondisplaced femoral neck fracture) PD Medical Decision Making - ED course Complexity details: reviewed results, re-evaluated patient (The patient was given IV medications for pain. She also was not able to use bedpan nor relax to use the PureWick, so nursing placed he as the patient was feeeling uncomfortably full bladder. ), considered differential (fall with right hip pain very c/w freacture. Plain film xray without clear fracture. I went to CT due to high clinical suspicion and this showed subtle femoral neck impacted fx, nondisplaced. ), d/w patient, d/w customer service consultant (Dr. Fernando, who is maintenance and operations supervisor today, and will kindly do the surgery tomorrow. Defers to Hospitalist due to medical comorbidities. Talked with Dr. Stark who will see pt in the ER for admission.) Reviewed Lab Results: After diagnosis of hipf racture, I did order basic labs for evaluating surgical candidacy. No notable abnormalities on CBC and chemistries. Mild anemia at 11.4 Hgb. Good renal function. ECG with normal rhythm. Basic chest xray without infiltrates nor failure. Departure - Departure Disposition: [facility] DC/Xfer Clinical Impression: Accidental fall Qualifiers: Encounter type: initial encounter Qualified Code(s): W19.XXXA - Unspecified fall, initial encounter Subcapital fracture of neck of right femur Qualifiers: Encounter type: initial encounter Fracture type: closed Qualified Code(s): S72.011A - Unspecified intracapsular fracture of right femur, initial encounter for closed fracture Condition: Stable Record reviewed to determine appropriate education?: Yes Discharge Date/Time: 11/16/23 17:39
[2023-11-16] MEDS: KETOROLAC 15 MG/ML VIAL IVP STA (11:34)
[2023-11-16] MEDS: HYDROmorphone 1 MG/ML CARPUJECT IVP STA ×2 (11:35→14:09)
--- NOTE | 2023-11-16 12:14 | XRAY Report ---
PROCEDURE: Chest 1V INDICATIONS: fall with hip pain TECHNIQUE: One view of the chest was acquired. COMPARISON: 06/02/2021. FINDINGS: Surgical changes and devices: None. Lungs and pleura: No pleural effusions or pneumothorax. Lungs are clear. Mediastinum: Mediastinal contours appear normal. Heart size is normal. Bones and chest wall: No suspicious bony lesions. Overlying soft tissues appear unremarkable. IMPRESSION: No acute cardiopulmonary process. Reviewed by: Lucio White MD on 11/16/2023 12:13 PM PDT Approved by: Lucio White MD on 11/16/2023 12:13 PM PDT Station ID: [id number]
--- NOTE | 2023-11-16 12:15 | XRAY Report ---
PROCEDURE: Hip w/Pelvis 2-3V RT INDICATIONS: fall with hip pain TECHNIQUE: 2 views of the hip were acquired. COMPARISON: 06/07/2023 FINDINGS: Bones: No fractures or dislocations. Stable sclerotic focus within the right proximal femur. Degener ative changes of the visualized lower lumbar spine and pubic symphysis. No suspicious bony lesions. Soft tissues: No suspicious soft tissue calcifications or masses. IMPRESSION: No acute bony abnormality. Reviewed by: Lucio White MD on 11/16/2023 12:14 PM PDT Approved by: Lucio White MD on 11/16/2023 12:14 PM PDT Station ID: [id number]
--- NOTE | 2023-11-16 13:29 | XRAY Report ---
PROCEDURE: Femur 1V RT INDICATIONS: fall, hip pain, normal appearing xray TECHNIQUE: Single views of the femur were acquired. COMPARISON: 06/07/2023 FINDINGS: Bones: No fractures or dislocations. Stable sclerotic focus right proximal femur, probably benign. N o suspicious bony lesions. Soft tissues: No suspicious soft tissue calcifications or masses. IMPRESSION: No fracture visible on the single view of the right distal femur. Reviewed by: Tamara Littlejohn MD on 11/16/2023 1:28 PM PDT Approved by: Tamara Littlejohn MD on 11/16/2023 1:28 PM PDT Station ID: [id number]
--- NOTE | 2023-11-16 13:40 | CT Report ---
PROCEDURE: Pelvis WO INDICATIONS: fall with right hip pain; xray appears normal TECHNIQUE: Noncontrast 3 mm axial sections acquired through the bony pelvis, with coronal and sagittal reformatt ing. For radiation dose reduction, the following was used: automated exposure control, adjustment of mA and/or kV according to patient size. COMPARISON: CT abdomen pelvis 04/19/2022 FINDINGS: Image quality: Excellent. Bones: Extremely subtle, nondisplaced and minimally impacted probable fracture of the subcapital rig ht femoral neck. No other fractures. Femoral head remains normally located in the acetabular fossa. M ild symmetric hip joint degeneration. Pelvic rings are intact. Mild SI joint degeneration. Severe dis c and endplate degeneration L5-S1. Soft tissues: No significant intramuscular fluid collection or hematoma. Intrapelvic soft tissues ar e remarkable for a prominent right posterior adnexal cyst with septations measuring up to 4.9 cm. [place] and left ovary appear otherwise normal. Urinary bladder is intact. There is no free pelvic fluid. IMPRESSION: Nondisplaced subcapital right femoral neck fracture. No other fractures. No evidence of significant soft tissue injury. Incidental note of right posterior adnexal complicated cyst. This has been present since 04/19/2022, a lmost certainly benign given stability. Reviewed by: Tamara Littlejohn MD on 11/16/2023 1:38 PM PDT Approved by: Tamara Littlejohn MD on 11/16/2023 1:38 PM PDT Station ID: [id number]
[2023-11-16 14:30] LABS: BASOPHILS # (AUTO) 0.1 10^3/uL (0.0-0.1); BASOPHILS % (AUTO) 0.6 %; EOSINOPHILS # (AUTO) 0.2 10^3/uL (0.0-0.7); EOSINOPHILS % (AUTO) 2.5 %; HCT - HEMATOCRIT 35.2 % (37.0-47.0); HGB - HEMOGLOBIN 11.4 g/dL (12.0-16.0); LYMPHOCYTES # (AUTO) 1.2 10^3/uL (1.5-3.5); LYMPHOCYTES % (AUTO) 13.5 %; MEAN CORPUSCULAR HEMOGLOBIN 31.4 pg (27.0-31.0); MEAN CORPUSCULAR HGB CONC 32.4 g/dL (32.0-36.0); MEAN PLATELET VOLUME 9.3 fL (7.9-10.8); MONOCYTES # (AUTO) 0.5 10^3/uL (0.0-1.0); NEUTROPHILS # (AUTO) 6.7 10^3/uL (1.5-6.6); NEUTROPHILS % (AUTO) 77.1 %; PLT - PLATELET COUNT 222 10^3/uL (130-450); RED BLOOD COUNT 3.63 10^6/uL (4.20-5.40); WHITE BLOOD COUNT 8.6 x10^3/uL (4.8-10.8)
[2023-11-16 14:46] LABS: ALBUMIN 4.1 g/dL (3.2-5.5); ALBUMIN/GLOBULIN RATIO 1.5 (1.0-2.2); BILIRUBIN,TOTAL 0.4 mg/dL (0.2-1.0); CALCIUM 9.4 mg/dL (8.5-10.3); CREATININE 0.7 mg/dL (0.6-1.3); MAGNESIUM 1.7 mg/dL (1.7-2.3); POTASSIUM 3.9 mmol/L (3.5-4.5); TOTAL PROTEIN 6.9 g/dL (6.4-8.9)
[2023-11-16 15:25] LABS: BILIRUBIN,URINE NEGATIVE (NEGATIVE); CLARITY,URINE CLEAR (CLEAR); GLUCOSE, URINE (UA) NEGATIVE (NEGATIVE); KETONES,URINE (UA) TRACE mg/dL (NEGATIVE); LEUKOCYTE ESTERASE, URINE NEGATIVE (NEGATIVE); NITRITE,URINE NEGATIVE (NEGATIVE); OCCULT BLOOD,URINE NEGATIVE (NEGATIVE); PROTEIN,URINE NEGATIVE (NEGATIVE); UROBILINOGEN,URINE 0.2 (NORMAL) E.U./dL (NORMAL)
[2023-11-16] MEDS ORDERED: SODIUM CHLORIDE FLUSH 0.9% 10 ML SYRINGE IVP PRN (16:50)
--- NOTE | 2023-11-16 16:58 | HISTORY & PHYSICAL EXAMINATION ---
Chief Complaint - Chief Complaint Chief Complaint: Right hip pain History of Present Illness - Admitted From Admitted From:: Emergency room - History Obtained From Records Reviewed: Yes History obtained from: Patient, patient's and emergency room physician, Dr. Daljit Ellington - History of Present Illness HPI Comment/Other: Marcy Anders is a 73-year-old woman who reports she had her dog on a leash and her legs got tangled in the leash. Patient had a ground-level fall on her right side and reported acute right hip pain. She presented to the emergency room for further evaluation. X-ray of the pelvis and right femur did not reveal any evidence of fracture. CT scan of the pelvis revealed a nondisplaced subcapital right femoral neck f racture. Patient denies chest pain, shortness of breath, abdominal pain. She complains of severe right hip pain. She complains of right wrist pain She has no other complaints at this time. 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: Tubal ligation Neuro: reports: Craniotomy HEENT: reports: Cataracts - POLST Patient has POLST: No POLST Status: Full Code Meds/Allgy - Home Medications Home Medications: Ambulatory Orders Medication Instructions Recorded Confirmed Temazepam [Restoril] 30 mg PO HS PRN 06/28/13 11/16/23 Lacosamide [Vimpat] 100 mg PO BID 06/02/21 11/16/23 Amitriptyline HCl 50 mg PO QPM PRN 06/19/21 11/16/23 Levetiracetam [Keppra] 750 mg PO BID 11/16/23 11/16/23 Pantoprazole Sodium 20 mg PO DAILY 11/16/23 11/16/23 - Allergies Allergies/Adverse Reactions: Allergies Allergy/AdvReac Type Severity Reaction Status Date / Time Influenza Virus Vaccines Allergy Severe Anxiety Verified 11/16/23 11:07 Sulfa (Sulfonamide Allergy Severe Anaphylaxis Verified 11/16/23 11:07 Antibiotics) pneumococcal vaccine Allergy Headache Verified 11/16/23 11:07 [From Pneumovax-23] sucralfate [From Carafate] Allergy Unknown Verified 11/16/23 11:07 Exam - Vital Signs Vital Signs: Vital Signs x48h Temp Pulse Resp BP Pulse Ox 11/16/23 15:18 86 20 98 11/16/23 12:27 89 20 140/93 H 97 11/16/23 10:59 37.0 C 88 18 139/83 H 96 - Physical Exam General Appearance: positive: Moderate distress Eyes Bilateral: positive: Conjunctivae nml Neck: positive: No JVD, Trachea midline Respiratory: positive: Other (Good air exchange in all lung liao no wheezing no crackles.) Cardiovascular: positive: Other (Positive S1-S2 no extra heart sounds.) Abdomen: positive: Other (Soft nontender nondistended positive bowel sounds.) Skin: positive: No rash Extremities: positive: No pedal edema Neurologic/Psychiatric: positive: Oriented x3, Motor nml Conclusion/Plan - Problem List (1) Subcapital fracture of neck of right femur Conclusion/Plan: Patient has a nondisplaced femoral neck fracture of the right hip. She was levi luated by Dr. Gennaro Fernando and after discussion with the patient the plan is for patient to undergo percutaneous screw fixation of the right hip. Patient's perioperative risk of complication is extremely low and would recommend proceeding with the procedure. Qualifiers: Encounter type: initial encounter Fracture type: closed Qualified Code(s): S72.011A - Unspecified intracapsular fracture of right femur, initial encounter for closed fracture (2) Wrist pain, right Conclusion/Plan: Patient complaining of left wrist pain. Plan is to obtain 3 views of the left wrist patient complaining of right wrist pain after fall. Plan is to obtain 3 views of the right wrist. 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 She reports she has not had a seizure for about 2 years. She reports she takes Vimpat and Keppra for her seizure disorder. Continue Vimpat and Keppra as an inpatient. - Lab Results Fish Bones: 11/16/23 14:24 11/16/23 14:24
--- NOTE | 2023-11-16 17:12 | HISTORY & PHYSICAL EXAMINATION ---
HPI - History Obtained From History obtained from: Patient, Family Exam limitations: Clinical condition - History of Present Illness HPI Comment/Other: This is a 73-year-old woman who was accidentally struck by her Doberman pincher dog indoors at home causing her to fall on her right hip. She had immediate pain and marked difficulty bearing weight on right leg. Her pain seems to be localized to the groin. She denies chest pain, shortness of breath, syncope or dizziness associated with the fall. She is normally ambulatory and relatively healthy. She has a history of seizure disorder and has been on antiseizure medications for a number of years. She has had no recent seizure.. She had excision of a cerebral meningioma many years ago. She is scheduled to have a hysterectomy later this year and she is also scheduled to have endoscopy to evaluate her stomach for potential gastric ulcer. She is . She is a community ambulator. 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 Neuro: positive: Craniotomy HEENT: positive: Cataracts Social & Family Hx - Social History Does the pt smoke?: No Smoking Status: Never smoker Does the pt drink ETOH?: Yes Does the pt have substance abuse?: No - POLST Patient has POLST: No POLST Status: Full Code Meds/Allgy - Home Medications Home Medications: Ambulatory Orders Medication Instructions Recorded Confirmed Levetiracetam [Levetiracetam ER] 500 mg PO BID 06/28/13 11/16/23 Temazepam [Restoril] 30 mg PO HS 06/28/13 11/16/23 Lacosamide [Vimpat] 100 mg PO BID 06/02/21 11/16/23 Amitriptyline HCl 50 mg PO QPM PRN 06/19/21 11/16/23 - Allergies Allergies/Adverse Reactions: Allergies Allergy/AdvReac Type Severity Reaction Status Date / Time Influenza Virus Vaccines Allergy Severe Anxiety Verified 11/16/23 11:07 Sulfa (Sulfonamide Allergy Severe Anaphylaxis Verified 11/16/23 11:07 Antibiotics) pneumococcal vaccine Allergy Headache Verified 11/16/23 11:07 [From Pneumovax-23] sucralfate [From Carafate] Allergy Unknown Verified 11/16/23 11:07 Exam - Vital Signs Vital Signs: Vital Signs x48h Temp Pulse Resp BP Pulse Ox 11/16/23 15:18 86 20 98 11/16/23 12:27 89 20 140/93 H 97 11/16/23 10:59 37.0 C 88 18 139/83 H 96 - Physical Exam General Appearance: positive: Mild distress Respiratory: positive: Chest non-tender, No respiratory distress Cardiovascular: positive: Regular rate & rhythm Peripheral Pulses: positive: 2+ Abdomen: positive: Non-tender Neurologic/Psychiatric: positive: Oriented x3, Motor nml, Sensation nml Comments/Other: The right hip has marked pain with passive motion, no deformity. Left hip exam is normal. Neurovascular is intact right leg. Skin is intact about right hip, no skin abrasion or hematoma noted about right hip or thigh upper extremity examination negative for fracture. Chest and abdomen did not reveal any focal tenderness Results - Lab Results Fish Bones: 11/16/23 14:24 11/16/23 14:24 Other Lab Results: Lab Results x24hrs 11/16/23 11/16/23 11/16/23 Range/Units 15:21 14:24 14:24 WBC 8.6 (4.8-10.8) x10^3/uL RBC 3.63 L (4.20-5.40) 10^6/uL Hgb 11.4 L (12.0-16.0) g/dL Hct 35.2 L (37.0-47.0) % MCV 97.0 (81.0-99.0) fL MCH 31.4 H (27.0-31.0) pg MCHC 32.4 (32.0-36.0) g/dL RDW 12.0 (12.0-15.0) % Plt Count 222 (130-450) 10^3/uL MPV 9.3 (7.9-10.8) fL Neut # (Auto) 6.7 H (1.5-6.6) 10^3/uL Lymph # (Auto) 1.2 L (1.5-3.5) 10^3/uL [place] # (Auto) 0.5 (0.0-1.0) 10^3/uL Eos # (Auto) 0.2 (0.0-0.7) 10^3/uL Baso # (Auto) 0.1 (0.0-0.1) 10^3/uL Absolute Nucleated RBC 0.00 x10^3/uL Nucleated RBC % 0.0 /100WBC Sodium 133 L (135-145) mmol/L Potassium 3.9 (3.5-4.5) mmol/L Chloride 101 (101-111) mmol/L Carbon Dioxide 25 (21-32) mmol/L Anion Gap 7.0 (6-13) BUN 19 (6-20) mg/dL Creatinine 0.7 (0.6-1.3) mg/dL Estimated GFR (MDRD) 82 L (>89) Glucose 97 (74-104) mg/dL Calcium 9.4 (8.5-10.3) mg/dL Magnesium 1.7 (1.7-2.3) mg/dL Total Bilirubin 0.4 (0.2-1.0) mg/dL AST 24 (10-42) IU/L ALT 17 (10-60) IU/L Alkaline Phosphatase 71 (42-121) IU/L Total Protein 6.9 (6.4-8.9) g/dL Albumin 4.1 (3.2-5.5) g/dL Globulin 2.8 (2.1-4.2) g/dL Albumin/Globulin Ratio 1.5 (1.0-2.2) Lipase 19 (11-82) U/L Urine Color YELLOW Urine Clarity CLEAR (CLEAR) Urine pH 6.0 (5.0-7.5) PH Ur Specific [place] 1.015 (1.002-1.030) Urine Protein NEGATIVE (NEGATIVE) mg/dL Urine Glucose (UA) NEGATIVE (NEGATIVE) mg/dL Urine Ketones TRACE (NEGATIVE) mg/dL Urine Occult Blood NEGATIVE (NEGATIVE) Urine Nitrite NEGATIVE (NEGATIVE) Urine Bilirubin NEGATIVE (NEGATIVE) Urine Urobilinogen 0.2 (NORMAL) (NORMAL) E.U./dL Ur Leukocyte Esterase NEGATIVE (NEGATIVE) Ur Microscopic Review NOT INDICATED Urine Culture Comments NOT INDICATED - Diagnostic Imaging Results Diagnostic Imaging Results: positive: Read independently (Routine radiographs of the right hip are normal. The CT scan suggested a subtle nondisplaced femoral neck fracture. The fracture line in the femoral neck is best seen on the lateral CT view) Impression/Plan - Problem List Problem List: Nondisplaced femoral neck fracture right hip I discussed treatment options which in this situation is primarily nonoperative versus percutaneous cannulated screw fixation. I do not see reason to even consider a hemiarthroplasty since the fracture is nondisplaced. This alignment has been confirmed by CT scan of the right hip. After shared decision making, the patient would like to proceed with percutaneous screw fixation right hip. She understands that there is a risk of failure with screw fixation that could require revision surgery to a arthroplasty. The chances of success are relatively high with screw fixation. She has signed informed consent agreeing to the surgery for percutaneous screw fixation right hip. She will be evaluated by our hospitalist Dr. Sullivan as well. Surgery will be tentatively scheduled for tomorrow She will need to be anticoagulated after surgery, most likely with aspirin 81 mg twice daily
[2023-11-16] MEDS ORDERED: AMITRIPTYLINE 25 MG TABLET PO PRN (17:37)
--- NOTE | 2023-11-16 17:49 | PHARMACY PROGRESS NOTE ---
- Best Possible Medication History Admit Date and Time: 11/16/23 1650 Processed by: Pharmacy Medications reviewed in ED?: Yes Medication History completed: Yes Patient Interview: Completed Secondary Source(s): Insurance records As the person ultimately responsible for medication therapy, providers are able to order a medication from an existing home medication list in [facility] via the "Reconcile Routine" prior to Confirmation of that medication by work station support specialist. Such practice is discouraged except when the physician, in their clinical judgment, deems that a medical need exists for a medication without regard to previous use.
[2023-11-16] MEDS: SODIUM CHLORIDE FLUSH 0.9% 10 ML SYRINGE IVP SCH (18:45)
[2023-11-16] MEDS: LACTATED RINGERS 1,000 ML IV SCH (18:45)
[2023-11-16] MEDS: PANTOPRAZOLE 40 MG TABLET PO SCH (18:46)
[2023-11-16] MEDS: oxyCODONE 5 MG TABLET PO PRN (19:28)
[2023-11-16] MEDS: levETIRAcetam 250 MG TABLET PO SCH (20:39)
[2023-11-16] MEDS: LACOSAMIDE 100 MG PO SCH (20:40)
[2023-11-16] MEDS: HYDROmorphone 0.5 MG/0.5 ML SYRINGE IVP PRN (20:40)
[2023-11-16] MEDS: TEMAZEPAM 15 MG CAPSULE PO PRN (22:58)
[2023-11-17] MEDS: LACTATED RINGERS 1,000 ML IV STA (06:22)
--- NOTE | 2023-11-17 10:22 | ANESTHESIA ---
Pre-Anesthesia VS, & Labs - Diagnosis right hip fracture - Procedure right hip pinning Vital Signs: Temp Pulse Resp BP Pulse Ox O2 Flow Rate 36.5 C 77 16 132/79 H 96 11/16/23 23:48 11/16/23 23:48 11/16/23 23:48 11/16/23 23:48 11/16/23 23:48 Height: 5 ft 2 in Weight (kg): 45.5 kg Body Mass Index: 18.3 BMI Classification: Underweight - NPO >8 hours - Is Patient ?: No - Lab Results Current Lab Results: Laboratory Tests 11/16/23 14:24: Sodium 133 L, Potassium 3.9, Chloride 101, Carbon Dioxide 25, Anion Gap 7.0, BUN 19, Creatinine 0.7, Estimated GFR (MDRD) 82 L, Glucose 97, Calcium 9.4, Magnesium 1.7, Total Bilirubin 0.4, AST 24, ALT 17, Alkaline Phosphatase 71, Total Protein 6.9, Albumin 4.1, Globulin 2.8, Albumin/Globulin Ratio 1.5, Lipase 19 11/16/23 14:24: WBC 8.6, RBC 3.63 L, Hgb 11.4 L, Hct 35.2 L, MCV 97.0, MCH 31.4 H, MCHC 32.4, RDW 12.0, Plt Count 222, MPV 9.3, Neut # (Auto) 6.7 H, Lymph # (Auto) 1.2 L, Ada # (Auto) 0.5, Eos # (Auto) 0.2, Baso # (Auto) 0.1, Absolute Nucleated RBC 0.00, Nucleated RBC % 0.0 Fish Bones: 11/16/23 14:24 11/16/23 14:24 Home Medications and Allergies Home Medications: Ambulatory Orders Levetiracetam [Keppra] 750 mg PO BID 11/16/23 Pantoprazole Sodium 20 mg PO DAILY 11/16/23 Active Medications Amitriptyline HCl (Amitriptyline 25 Mg Tablet) 50 mg PO QPM PRN PRN Reason: Insomnia Hydromorphone HCl (Hydromorphone 0.5 Mg/0.5 Ml Syringe) 0.5 mg IVP Q4H PRN PRN Reason: Severe Pain (Level 7-10) Last Admin: 11/17/23 09:36 Dose: 0.5 mg Lactated Ringer's (Lr) 1,000 mls @ 100 mls/hr IV .Q10H [facility] Last Infusion: 11/17/23 06:30 Dose: Infused Lactated Ringer's (Lr) 1,000 mls @ 75 mls/hr IV .[id number] ST[facility] Stop: 11/17/23 12:59 Last Admin: 11/17/23 06:22 Dose: 75 mls/hr Levetiracetam (Levetiracetam 250 Mg Tablet) 750 mg PO BID [facility] Last Admin: 11/17/23 08:11 Dose: 750 mg Oxycodone HCl (Oxycodone 5 Mg Tablet) 5 mg PO Q4HR PRN PRN Reason: Moderate Pain (Level 4-6) Last Admin: 11/17/23 05:38 Dose: 5 mg Lacosamide [Vimpat (] 100 Mg Tablet) 1 each PO BID [facility] Last Admin: 11/17/23 08:10 Dose: 1 each Sodium Chloride (Sodium Chloride Flush 0.9% 10 Ml Syringe) 10 ml IVP PRN PRN PRN Reason: NEEDED PER PROVIDER ORDERS Sodium Chloride (Sodium Chloride Flush 0.9% 10 Ml Syringe) 10 ml IVP 0 100,0900,1700 [facility] Last Admin: 11/17/23 08:11 Dose: 10 ml Temazepam (Temazepam 15 Mg Capsule) 30 mg PO HS PRN PRN Reason: Insomnia Last Admin: 11/16/23 22:58 Dose: 30 mg Temazepam [Restoril] 30 mg PO HS PRN 06/28/13 Lacosamide [Vimpat] 100 mg PO BID 06/02/21 Amitriptyline HCl 50 mg PO QPM PRN 06/19/21 Levetiracetam [Keppra] 750 mg PO BID 11/16/23 Pantoprazole Sodium 20 mg PO DAILY 11/16/23 Allergies/Adverse Reactions: Allergies Allergy/AdvReac Type Severity Reaction Status Date / Time Influenza Virus Vaccines Allergy Severe Anxiety Verified 11/16/23 11:07 Sulfa (Sulfonamide Allergy Severe Anaphylaxis Verified 11/16/23 11:07 Antibiotics) pneumococcal vaccine Allergy Headache Verified 11/16/23 11:07 [From Pneumovax-23] sucralfate [From Carafate] Allergy Unknown Verified 11/16/23 11:07 Anes History & Medical History - Anesthetic History Anesthesia Complications: reports: No previous complications - Medical History Cardiovascular: reports: NE Pulmonary: reports: Asthma Gastrointestinal: reports: Chronic diarrhea Urinary: reports: None Neuro: reports: Seizure disorder Musculoskeletal: reports: Osteoarthritis Endocrine/Autoimmune: reports: None, Other (hypoglycemia and needs to eat often) Blood Disorders: reports: Anemia Skin: reports: None Smoking Status: Never smoker - Surgical History General: reports: Cholecystectomy Eyes Ears Nose Throat (EENT): reports: Cataracts Gynecologic: reports: Tubal ligation Neurologic: reports: Craniotomy Exam General: Alert, Oriented x3, Cooperative Dental: WNL Mouth Opening: Greater than 4 Fingerbreadths Neck Mobility: Normal Mallampati classification: II Thyromental Distance: greater than 6 cm Respiratory: Lungs clear Cardiovascular: Regular rate, Normal S1, Normal S2 Plan Anesthesia Type: General, Spinal, Fascia Iliaca Block Consent for Procedure(s) Verified and Reviewed: Yes Code Status: Attempt Resuscitation ASA classification: 2-Mild systemic disease Is this case an emergency?: No
[2023-11-17] MEDS ORDERED: ATROPINE ABBOJECT 1 MG/10 ML SYRINGE IVP PRN (10:23)
[2023-11-17] MEDS ORDERED: fentaNYL 100 MCG/2 ML VIAL IVP PRN (10:23)
[2023-11-17] MEDS ORDERED: ONDANSETRON 4 MG/2 ML VIAL IVP PRN (10:23)
[2023-11-17] MEDS ORDERED: ePHEDrine 50 MG/ML VIAL IVP PRN (10:23)
[2023-11-17] MEDS ORDERED: MORPHINE 2 MG/ML CARPUJECT IVP PRN (10:23)
[2023-11-17] MEDS ORDERED: NALOXONE 0.4 MG/ML VIAL IVP PRN (10:23)
[2023-11-17] MEDS ORDERED: METOCLOPRAMIDE 10 MG/2 ML VIAL IVP PRN (10:23)
[2023-11-17] MEDS ORDERED: HYDROmorphone 0.5 MG/0.5 ML SYRINGE IVP PRN (10:23)
[2023-11-17] MEDS: SENNA 8.6 MG TABLET PO SCH (10:59)
[2023-11-17] MEDS: LACTATED RINGERS 1,000 ML IV SCH (10:59)
[2023-11-17] MEDS ORDERED: BACITRACIN ZINC OINT 1 PACKET TOP ONE (11:31)
[2023-11-17] MEDS ORDERED: LIDOCAINE 1%-EPI 1:100000 20 ML MDV ONE (11:31)
[2023-11-17] MEDS ORDERED: BUPIVACAINE 0.5% PF 10 ML VIAL ONE (11:32)
[2023-11-17] MEDS ORDERED: PROPOFOL 500 MG/50 ML 500 MG/50 ML VIAL ONE (11:51)
[2023-11-17] MEDS ORDERED: MIDAZOLAM 2 MG/2 ML VIAL ONE (11:51)
[2023-11-17] MEDS ORDERED: fentaNYL 100 MCG/2 ML VIAL ONE (11:51)
[2023-11-17] MEDS ORDERED: ceFAZolin 1 GM VIAL ONE (13:00)
[2023-11-17] MEDS ORDERED: ROCURONIUM 50 MG/5 ML VIAL ONE (13:07)
[2023-11-17] MEDS ORDERED: DEXAMETHASONE 4 MG/ML VIAL ONE ×2 (13:07→14:01)
[2023-11-17] MEDS ORDERED: ONDANSETRON 4 MG/2 ML VIAL ONE (13:07)
[2023-11-17] MEDS ORDERED: ROPIVACAINE 0.5% PF 20 ML VIAL ONE (13:20)
[2023-11-17] MEDS ORDERED: SODIUM CHLORIDE 0.9% 10 ML VIAL IVP ONE (13:21)
[2023-11-17] MEDS ORDERED: SEVOFLURANE 250 ML LIQUID INH ONE (13:30)
[2023-11-17] MEDS: BUPIVACAINE 0.5% PF 30 ML VIAL INFIL ONE ×2 (13:31)
--- NOTE | 2023-11-17 13:58 | OPERATIVE REPORT ---
Operative Report - General Admit Date: 11/16/23 Procedure Date: 11/17/23 Planned Procedure: percutaneous screw fixation femoral neck fracture right hip Pre-Op Diagnosis: Nondisplaced femoral neck fracture right hip Procedure Performed: Percutaneous screw fixation right hip Post Op Diagnosis: Same as preoperative diagnosis - Procedure Note Primary Surgeon: Gennaro Fernando MD Secondary Surgeon: Aylin HOOPER Anesthesia Provider: Zulma Cyr CRNA Anesthesia Technique: General ET tube Estimated Blood Loss (mL): 5 Indications: This is a 73-year-old with a history of a Ground level fall yesterday, groin pain and inability to bear weight right leg. She had painful movement of right hip passively reproducing her pain. Her x-rays did not show a definite fracture but her CT scan showed a nondisplaced femoral neck fracture right hip. Shared decision making was performed, informed consent obtained for percutaneous screw fixation femoral neck fracture right hip. She has had preoperative medical evaluation by her hospitalist, no contraindications to surgery. Findings: Nondisplaced femoral neck fracture not clearly visualized by C arm Complications: None - Other Other Information/Narrative: The patient was brought to the operating room table and placed in the supine position on the [place] fracture table. The right leg was placed in boot traction but no traction was utilized. The left leg was placed in a well-leg tan. He was secured against the perineal post. The C-arm image intensifier showed good alignment of the femoral neck fracture of the right hip. The right hip and right lower extremity was prepped and draped in sterile manner in the usual fashion. A timeout procedure was performed by the entire operating room team and all were in agreement. With the assistance of the C arm, the [employer] 7.0 mm stainless steel cannulated screw system was utilized. A incision was made about 2 cm distal to the base of the greater trochanter. The guidepin was inserted into the femoral head and guided with the use of C arm image intensifier using biplanar imaging. 2 additional guidepins were inserted in the configuration of an inverted triangle. The depth of the guide pins were measured. The lateral cortex was opened with a drill bit. 3 cannulated screws were inserted, 2 with short thread length and 1 with a longer thread length. All screws were lag screws. Final images were obtained of the right hip both AP and lateral show satisfactory alignment of fracture and fixation. The small 1 cm incisions were closed with . 3 -0strata fix subcuticular suture, Mepilex dressing. The patient received 2 g of Ancef , tolerated the procedure well. A physician certified nursing assistant was medically necessary to help with prepping and draping, positioning, protection of vital structures, assistance during the procedure including wound closure, dressing and/or splinting.
[2023-11-17] MEDS ORDERED: DOCUSATE SODIUM 100 MG CAPSULE PO PRN (14:04)
[2023-11-17] MEDS ORDERED: SUGAMMADEX 200 MG/2 ML VIAL IVP ONE (14:06)
[2023-11-17] MEDS: LACTATED RINGERS 800 ML IV ONE ×2 (14:20→14:41)
--- NOTE | 2023-11-17 14:42 | ANESTHESIA POST OP EVALUATION ---
Anesthesia Post Eval - Post Anesthesia Eval Vitals: Last Vital Signs Temp 36.5 C 11/17/23 14:35 Pulse 76 11/17/23 14:35 Resp 21 11/17/23 14:35 BP 144/79 H 11/17/23 14:35 Pulse Ox 99 11/17/23 14:35 O2 Flow Rate CV Function Including HR & BP: Stable Pain Control: Satisfactory Nausea & Vomiting: Negative Mental Status: Baseline Respiratory Status: Airway Patent Hydration Status: Satisfactory Anesthesia Complications: None
[2023-11-17] MEDS: ceFAZolin (2G) 2 GM in SODIUM CHLORIDE 0.9% MINIBAG 100 ML IV SCH (14:59)
--- NOTE | 2023-11-17 18:03 | XRAY Report ---
PROCEDURE: OR C-Arm Procedure INDICATIONS: Right hip pinning with Dr. Fernando FLUORO TIME: 000.2 TECHNIQUE: 2 intraoperative fluoroscopic images of right hip were obtained. COMPARISON: None. FINDINGS: Intraoperative fluoroscopic images shows thickening of right femoral neck with 3 surgical screws in p lace. IMPRESSION: Fluoroscopy guidance was provided intraoperatively for right femoral neck pinning Reviewed by: Leonardo Lo MD on 11/17/2023 6:02 PM PDT Approved by: Leonardo Lo MD on 11/17/2023 6:02 PM PDT Station ID: [id number]
--- NOTE | 2023-11-17 18:26 | XRAY Report ---
PROCEDURE: Wrist 3+V RT INDICATIONS: Right wrist pain s/p fall TECHNIQUE: 3 views of the wrist were acquired. COMPARISON: None FINDINGS: Bones: No fractures or dislocations. No suspicious bony lesions. Generalized decreased osseous mine ralization present. Degenerative CMC osteoarthritis Soft tissues: No suspicious soft tissue calcifications or masses. IMPRESSION: Osteopenia without fracture Reviewed by: Patrick Merino MD on 11/17/2023 5:25 PM AKDT Approved by: Patrick Merino MD on 11/17/2023 5:25 PM AKDT Station ID: [id number]
[2023-11-17] MEDS: ASPIRIN EC 81 MG TABLET PO SCH (20:52)
--- NOTE | 2023-11-17 21:00 | PROVIDER PROGRESS NOTE ---
Assessment/Plan - Problem List (1) Subcapital fracture of neck of right femur Qualifiers: Encounter type: initial encounter Fracture type: closed Qualified Code(s ): S72.011A - Unspecified intracapsular fracture of right femur, initial encounter for closed fracture Assessment/Plan: Patient has a nondisplaced femoral neck fracture of the right hip. She was evaluated by Dr. Gennaro Fernando and after discussion with the patient the plan is for patient to undergo percutaneous screw fixation of the right hip. Patient's perioperative risk of complication is extremely low and would recommend proceeding with the procedure.Procedures scheduled sometime for today. Qualifiers: Encounter type: initial encounter Fracture type: closed Qualified Code(s): S72.011A - Unspecified intracapsular fracture of right femur, initial encounter for closed fracture (2) Wrist pain, right Conclusion/Plan: Patient complaining of left wrist pain. X-ray of the wrist performed today revealed no fracture. 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 She reports she has not had a seizure for about 2 years. She reports she takes Vimpat and Keppra for her seizure disorder. Continue Vimpat and Keppra as an inpatient. - Current Meds Current Meds: Current Medications Generic Name Dose Route Start Last Admin Trade Name Mikiq PRN Reason Stop Dose Admin Aspirin 81 mg 11/17/23 21:00 11/17/23 20:52 Aspirin Ec 81 Mg Tablet PO 81 mg BID [facility] Administration Hydromorphone HCl 0.5 mg 11/16/23 20:23 11/17/23 19:20 Hydromorphone 0.5 Mg/0.5 Ml Syringe IVP 0.5 mg Q4H PRN Administration Severe Pain (Level 7-10) Lactated Ringer's 1,000 mls @ 100 mls/hr 11/16/23 17:00 11/17/23 20:52 Lr IV 100 mls/hr .Q10H [facility] Administration Cefazolin Sodium 2 gm/ Sodium 100 mls @ 200 mls/hr 11/17/23 15:00 11/17/23 15:29 Chloride IV 11/17/23 23:29 Infused Q8H [facility] Infusion Levetiracetam 750 mg 11/16/23 21:00 11/17/23 20:52 Levetiracetam 250 Mg Tablet PO 750 mg BID [facility] Administration Oxycodone HCl 5 mg 11/16/23 19:10 11/17/23 18:08 Oxycodone 5 Mg Tablet PO 5 mg Q4HR PRN Administration Moderate Pain (Level 4-6) Lacosamide [Vimpat 1 each 11/16/23 21:00 11/17/23 20:52 ] 100 Mg Tablet PO 1 each BID [facility] Administration Senna 17.2 - 25.8 mg 11/17/23 11:00 11/17/23 16:16 Senna 8.6 Mg Tablet PO 11/18/23 05:01 17.2 mg Q6H [facility] Administration Sodium Chloride 10 ml 11/16/23 17:00 11/17/23 16:04 Sodium Chloride Flush 0.9% 10 Ml Syringe IVP Not Given 0100,0900,1700 [facility] Temazepam 30 mg 11/16/23 16:58 11/16/23 22:58 Temazepam 15 Mg Capsule PO 30 mg HS PRN Administration Insomnia - Lab Result Fish Bone Diagrams: 11/16/23 14:24 11/16/23 14:24 - Additional Planning My Orders: My Active Orders 11/16/23 21:00 Patient Own Controlled 1 each PO BID levETIRAcetam [Keppra] 750 mg PO BID 11/17/23 11:00 Senna [Senokot] 17.2 - 25.8 mg PO Q6H Subjective - Subjective Patient Reports: Other (Alert. Continues to complain of hip pain. No other complaints at this time.) Objective Vital Signs: Vital Signs - 24 hr 11/16/23 11/17/23 11/17/23 23:48 09:00 14:20 Temperature 36.5 C 36.7 C 36.0 C L Heart Rate 83 Heart Rate [ 77 75 Brachial] Respiratory 16 16 16 Rate Blood Pressure 159/82 H Blood Pressure 111/55 L [Left Brachial artery] Blood Pressure 132/79 H [Right Brachial artery] O2 Saturation 96 97 100 11/17/23 11/17/23 11/17/23 14:25 14:30 14:35 Temperature 36.0 C L 36.5 C 36.5 C Heart Rate 83 79 76 Heart Rate [ Brachial] Respiratory 16 18 21 Rate Blood Pressure 155/76 H 144/79 H Blood Pressure [Left Brachial artery] Blood Pressure [Right Brachial artery] O2 Saturation 100 97 99 11/17/23 11/17/23 11/17/23 14:50 15:34 16:34 Temperature 36.8 C 36.4 C L 36.4 C L Heart Rate Heart Rate [ 75 77 78 Brachial] Respiratory 16 16 16 Rate Blood Pressure Blood Pressure [Left Brachial artery] Blood Pressure 139/89 H 139/78 H 136/85 H [Right Brachial artery] O2 Saturation 94 94 92 Oxygen O2 Source Room air I&O (Last 24 Hrs): Intake and Output Totals x24h 11/15/23 11/16/23 11/17/23 23:59 23:59 23:59 Intake Total 0154.130 4921.667 Output Total 300 1200 Balance 1003.333 396.667 General: Alert, Oriented x3, No acute distress Neck: No JVD, No thyromegaly Neuro: Alert, Non Focal Cardiovascular: Other (Positive S1-S2 no extra heart sounds.) Respiratory: Other (Good air exchange in all lung liao no wheezing no crackles) Abdomen: Other (Soft nontender nondistended positive bowel sounds) Extremities: No cyanosis, No edema Skin: No rashes - Results Results: Laboratory Results WBC 8.6 x10^3/uL (4.8-10.8) 11/16/23 14: RBC 3.63 10^6/uL (4.20-5.40) L 11/16/23 14:24 Hgb 11.4 g/dL (12.0-16.0) L 11/16/23 14:24 Hct 35.2 % (37.0-47.0) L 11/16/23 14:24 MCV 97.0 fL (81.0-99.0) 11/16/23 14:24 MCH 31.4 pg (27.0-31.0) H 11/16/23 14:24 MCHC 32.4 g/dL (32.0-36.0) 11/16/23 14:24 RDW 12.0 % (12.0-15.0) 11/16/23 14:24 Plt Count 222 10^3/uL (130-450) 11/16/23 14:24 MPV 9.3 fL (7.9-10.8) 11/16/23 14:24 Neut # (Auto) 6.7 10^3/uL (1.5-6.6) H 11/16/23 14:24 Lymph # (Auto) 1.2 10^3/uL (1.5-3.5) L 11/16/23 14:24 Maries # (Auto) 0.5 10^3/uL (0.0-1.0) 11/16/23 14:24 Eos # (Auto) 0.2 10^3/uL (0.0-0.7) 11/16/23 14:24 Baso # (Auto) 0.1 10^3/uL (0.0-0.1) 11/16/23 14:24 Absolute Nucleated RBC 0.00 x10^3/uL 11/16/23 14:24 Nucleated RBC % 0.0 /100WBC 11/16/23 14:24 Sodium 133 mmol/L (135-145) L 11/16/23 14:24 Potassium 3.9 mmol/L (3.5-4.5) 11/16/23 14:24 Chloride 101 mmol/L (101-111) 11/16/23 14:24 Carbon Dioxide 25 mmol/L (21-32) 11/16/23 14:24 Anion Gap 7.0 (6-13) 11/16/23 14:24 BUN 19 mg/dL (6-20) 11/16/23 14:24 Creatinine 0.7 mg/dL (0.6-1.3) 11/16/23 14:24 Estimated GFR (MDRD) 82 (>89) L 11/16/23 14:24 Glucose 97 mg/dL (74-104) 11/16/23 14:24 Calcium 9.4 mg/dL (8.5-10.3) 11/16/23 14:24 Magnesium 1.7 mg/dL (1.7-2.3) 11/16/23 14:24 Total Bilirubin 0.4 mg/dL (0.2-1.0) 11/16/23 14:24 AST 24 IU/L (10-42) 11/16/23 14:24 ALT 17 IU/L (10-60) 11/16/23 14:24 Alkaline Phosphatase 71 IU/L (42-121) 11/16/23 14:24 Total Protein 6.9 g/dL (6.4-8.9) 11/16/23 14:24 Albumin 4.1 g/dL (3.2-5.5) 11/16/23 14:24 Globulin 2.8 g/dL (2.1-4.2) 11/16/23 14:24 Albumin/Globulin Ratio 1.5 (1.0-2.2) 11/16/23 14:24 Lipase 19 U/L (11-82) 11/16/23 14:24 Urine Color YELLOW 11/16/23 15:21 Urine Clarity CLEAR (CLEAR) 11/16/23 15:21 Urine pH 6.0 PH (5.0-7.5) 11/16/23 15:21 Ur Specific [place] 1.015 (1.002-1.030) 11/16/23 15:21 Urine Protein NEGATIVE mg/dL (NEGATIVE) 11/16/23 15:21 Urine Glucose (UA) NEGATIVE mg/dL (NEGATIVE) 11/16/23 15:21 Urine Ketones TRACE mg/dL (NEGATIVE) 11/16/23 15:21 Urine Occult Blood NEGATIVE (NEGATIVE) 11/16/23 15:21 Urine Nitrite NEGATIVE (NEGATIVE) 11/16/23 15:21 Urine Bilirubin NEGATIVE (NEGATIVE) 11/16/23 15:21 Urine Urobilinogen 0.2 (NORMAL) E.U./dL (NORMAL) 11/16/23 15:21 Ur Leukocyte Esterase NEGATIVE (NEGATIVE) 11/16/23 15:21 Ur Microscopic Review NOT INDICATED 11/16/23 15:21 Urine Culture Comments NOT INDICATED 11/16/23 15:21 - Procedures Procedures: Procedures RESECTION OF GALLBLADDER, PERCUTANEOUS ENDOSCOPIC APPROACH (06/24/21)
[2023-11-17] MEDS: ACETAMINOPHEN 325 MG TABLET PO SCH (22:30)
[2023-11-18 00:20] VITALS: O2SAT 95
[2023-11-18] MEDS: ACETAMINOPHEN 500 MG TABLET PO SCH (05:32)
[2023-11-18 05:56] LABS: HCT - HEMATOCRIT 29.7 % (37.0-47.0); HGB - HEMOGLOBIN 9.6 g/dL (12.0-16.0); MEAN CORPUSCULAR HEMOGLOBIN 31.5 pg (27.0-31.0); MEAN CORPUSCULAR HGB CONC 32.3 g/dL (32.0-36.0); MEAN CORPUSCULAR VOLUME 97.4 fL (81.0-99.0); RED BLOOD COUNT 3.05 10^6/uL (4.20-5.40); RED CELL DISTRIBUTION WIDTH 11.9 % (12.0-15.0); WHITE BLOOD COUNT 7.9 x10^3/uL (4.8-10.8)
[2023-11-18 06:10] LABS: CALCIUM 8.9 mg/dL (8.5-10.3); CREATININE 0.5 mg/dL (0.6-1.3); MAGNESIUM 1.3 mg/dL (1.7-2.3); PHOSPHORUS 2.9 mg/dL (2.5-5.0); POTASSIUM 4.1 mmol/L (3.5-4.5)
--- NOTE | 2023-11-18 10:33 | PROVIDER PROGRESS NOTE ---
Subjective - General Admit Date: 11/16/23 Procedure Date: 11/17/23 Post Op Days: 1 Procedure Performed: Percutaneous right hip pinning with cannulated screw fixation - Other Other Information/Narrative: She reports improved pain control compared to pre-operatively Tolerating oral diet without nausea and emesis States her is building ramps for ease of access to the home She denies chest pain and dyspnea Awaiting physical therapy evaluation Objective - Patient Data Reviewed Vital Signs: Yes Vital Signs: Vital Signs x48h Temp Pulse Resp BP Pulse Ox 11/18/23 08:00 36.7 C 98 18 125/84 H 95 11/18/23 04:00 36.7 C 86 18 129/84 H 95 Weight: Weight 11/16/23 11/17/23 11/18/23 23:59 23:59 23:59 Weight (kg) 45.5 kg 45.5 kg Intake & Output: Intake and Output Totals x24h 11/16/23 11/17/23 11/18/23 23:59 23:59 23:59 Intake Total 2931.531 2531.667 1275 Output Total 300 1500 Balance 3942.052 4032.667 1275 - Lab Results Lab Results: 11/18/23 05:17 11/18/23 05:17 Other Lab Results: Lab Results x24hrs 11/18/23 11/18/23 Range/Units 05:17 05:17 WBC 7.9 (4.8-10.8) x10^3/uL RBC 3.05 L (4.20-5.40) 10^6/uL Hgb 9.6 L (12.0-16.0) g/dL Hct 29.7 L (37.0-47.0) % MCV 97.4 (81.0-99.0) fL MCH 31.5 H (27.0-31.0) pg MCHC 32.3 (32.0-36.0) g/dL RDW 11.9 L (12.0-15.0) % Plt Count 197 (130-450) 10^3/uL MPV 10.0 (7.9-10.8) fL Sodium 134 L (135-145) mmol/L Potassium 4.1 (3.5-4.5) mmol/L Chloride 101 (101-111) mmol/L Carbon Dioxide 29 (21-32) mmol/L Anion Gap 4.0 L (6-13) BUN 7 (6-20) mg/dL Creatinine 0.5 L (0.6-1.3) mg/dL Estimated GFR (MDRD) 122 (>89) Glucose 109 H (74-104) mg/dL Calcium 8.9 (8.5-10.3) mg/dL Phosphorus 2.9 (2.5-5.0) mg/dL Magnesium 1.3 L (1.7-2.3) mg/dL - Current Medications Current Medications: Current Medications Generic Name Dose Route Start Last Admin Trade Name Freq PRN Reason Stop Dose Admin Acetaminophen 1,000 mg 11/18/23 06:00 11/18/23 05:32 Acetaminophen 500 Mg Tablet PO 1,000 mg TID [facility]ANNA[facility] Administration Aspirin 81 mg 11/17/23 21:00 11/18/23 08:09 Aspirin Ec 81 Mg Tablet PO 81 mg BID [facility] Administration Hydromorphone HCl 0.5 mg 11/16/23 20:23 11/18/23 09:20 Hydromorphone 0.5 Mg/0.5 Ml Syringe IVP 0.5 mg Q4H PRN Administration Severe Pain (Level 7-10) Lactated Ringer's 1,000 mls @ 100 mls/hr 11/16/23 17:00 11/18/23 08:08 Lr IV 100 mls/hr .Q10H [facility] Administration Levetiracetam 750 mg 11/16/23 21:00 11/18/23 08:09 Levetiracetam 250 Mg Tablet PO 750 mg BID [facility] Administration Oxycodone HCl 5 mg 11/16/23 19:10 11/18/23 02:26 Oxycodone 5 Mg Tablet PO 5 mg Q4HR PRN Administration Moderate Pain (Level 4-6) Lacosamide [Vimpat 1 each 11/16/23 21:00 11/18/23 08:09 ] 100 Mg Tablet PO 1 each BID [facility] Administration Sodium Chloride 10 ml 11/16/23 17:00 11/18/23 08:09 Sodium Chloride Flush 0.9% 10 Ml Syringe IVP 10 ml 0100,0900,1700 [facility] Administration Temazepam 30 mg 11/16/23 16:58 11/17/23 23:05 Temazepam 15 Mg Capsule PO 30 mg HS PRN Administration Insomnia - Physical Exam Comments/Other: well developed, well nourished, 73 year old female, no acute distress Dressing is dry and intact to right hip without drainage or hematoma Femoral and sciatic nerve function in tact Pleasant ABX Reporting Has patient been on IV antibiotics over the past 48 hours?: Yes Impression/Plan - Problem List Problem List: 73 year old female with a past medical history of seizures is post operative day 1 from a right hip percutaneous pinning with cannulated screw fixation. Her pain control is good and she is tolerating oral diet. She is awaiting physical therapy evaluation but eager to return home. Plan: - DVT prophylaxis with 81 mg of aspirin twice daily for 6 weeks, SCDs in hospital - Physical and occupational therapy evaluation today and assessment for discharge home - Pain control per hospitalist physician - Weight bearing as tolerated with front wheeled walker at all times. No hip precautions. Platform walker may be needed given right wrist injury. No fracture on x-ray. - Follow up with orthopedic clinic in 1 week - Mepilex dressing to remain in place until follow up. No sutures to be removed. - Bowel regimen as needed - Normal diet, IV fluids to be discontinued when tolerating oral diet without nausea and emesis - Appreciate expertise of hospitalist physician in co-managed care - Discontinue he
[2023-11-18] MEDS: KETOROLAC 15 MG/ML VIAL IVP STA (16:27)
[2023-11-18] MEDS: oxyCODONE 5 MG TABLET PO STA (16:28)
[2023-11-18] MEDS ORDERED: PANTOPRAZOLE 40 MG TABLET PO SCH (17:00)
--- NOTE | 2023-11-18 17:59 | Discharge Plan ---
Discharge Plan Problem Reviewed?: Yes Disposition: 01 Home, Self Care Condition: Stable Prescriptions: oxyCODONE [Roxicodone] 5 mg PO Q4HR PRN #56 tab PRN Reason: Moderate Pain (Level 4-6) Docusate Sodium 100Mg Capsule [Colace 100Mg Capsule] 100 mg PO BID PRN #60 cap PRN Reason: Constipation Aspirin EC [Ecotrin] 81 mg PO BID #90 tab Ibuprofen [Motrin] 400 mg PO Q6H #90 tablet Pantoprazole Sodium 20 mg PO BID #60 tab Senna [Senokot] 8.6 mg PO BID #60 tablet Diet: Regular Activity Restrictions: Activity as Tolerated Shower Restrictions: No (Shower as tolerated. ) Driving Restrictions: Yes Assistance Devices: Walker Weight Bearing: As tolerated Instruction Topics: Fx Hip Health Concerns: History of present illness: Marcy Anders is a 73-year-old woman who reports she had her dog on a leash and her legs got tangled in the leash. Patient had a ground-level fall on her right side and reported acute right hip pain. She presented to the emergency room for further evaluation. X-ray of the pelvis and right femur did not reveal any evidence of fracture. CT scan of the pelvis revealed a nondisplaced subcapital right femoral neck fracture. Patient denies chest pain, shortness of breath, abdominal pain. She complains of severe right hip pain. She complains of right wrist pain She has no other complaints at this time. Hospital Course: Marcy Song was admitted to the hospital with inpatient status. CT scan of the pelvis revealed a nondisplaced subcapital right femoral neck fracture. She also complained of right wrist pain on admission and 3 views of the right wrist did not reveal a fracture. She was evaluated by Dr. Gennaro Fernando of orthopedic surgery and the patient underwent percutaneous screw fixation of the femoral neck fracture of right hip on November 17, 2023. During the perioperative period, patient was treated with oxycodone 5 mg every 4 hours as needed for pain. Currently the patient does not have any indication for admission and plan is to discharge to home. Arrangements will be made for home health. Plan of Treatment: 1. Take all medications as prescribed. 2. Please make an appointment to see Dr. Fernando in about 1 week. 3. Please do not consume alcohol for the next 8-12 weeks. 4. Please take aspirin with food or milk. Please take NSAIDs with food or milk. 5. Please use your front wheel walker at all times. 6. 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 Care Goals: Goal of care is to improve strength and balance with physical therapy with goal of returning to baseline and continued independent living. Assessment: (1) Subcapital fracture of neck of right femur Qualifiers: Encounter type: initial encounter Fracture type: closed Qualified Code(s): S72.011A - Unspecified intracapsular fracture of right femur, initial encounter for closed fracture Assessment/Plan: Patient has a nondisplaced femoral neck fracture of the right hip. She was evaluated by Dr. Gennaro Fernando and after discussion with the patient the plan is for patient to undergo percutaneous screw fixation of the right hip. Patient's perioperative risk of complication is extremely low and would recommend proceeding with the procedure.Procedures scheduled sometime for today. Qualifiers: Encounter type: initial encounter Fracture type: closed Qualified Code(s): S72.011A - Unspecified intracapsular fracture of right femur, initial encounter for closed fracture (2) Wrist pain, right Conclusion/Plan: Patient complaining of left wrist pain. X-ray of the wrist performed today revealed no fracture. 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 She reports she has not had a seizure for about 2 years. She reports she takes Vimpat and Keppra for her seizure disorder. Continue Vimpat and Keppra as an inpatient. Follow-Up Care: Home Health - RN, Home Health - PT, Home Health - OT No Smoking: If you smoke, Please STOP! Call for help. Follow-up with: Marylou Muniz MD [Primary Care Provider] -
--- NOTE | 2023-11-18 18:00 | DISCHARGE SUMMARY ---
"Discharge Summary Admit Date: 11/16/23 Discharge Date: 11/18/23 Discharging Provider: Naresh Stark MD Primary Care Provider: Marylou Muniz Code Status: Attempt Resuscitation Condition at Discharge: Stable Discharge Disposition: 01 Home, Self Care - DIAGNOSES Admission Diagnoses: (1) Subcapital fracture of neck of right femur (2) Wrist pain, right (3) Seizure disorder Discharge Diagnoses with Status of Each Condition: (1) Subcapital fracture of neck of right femur (2) Wrist pain, right (3) Seizure disorder - HPI History of Present Illness: Marcy Anders is a 73-year-old woman who reports she had her dog on a leash and her legs got tangled in the leash. Patient had a ground-level fall on her right side and reported acute right hip pain. She presented to the emergency room for further evaluation. X-ray of the pelvis and right femur did not reveal any evidence of fracture. CT scan of the pelvis revealed a nondisplaced subcapital right femoral neck fracture. Patient denies chest pain, shortness of breath, abdominal pain. She complains of severe right hip pain. She complains of right wrist pain She has no other complaints at this time. - CONSULTS | PROCEDURES Consultations: 11/16/23 Orthopedic Surgery (Gennaro Fernando) Procedures: Marcy Song was admitted to the hospital with inpatient status. CT scan of the pelvis revealed a nondisplaced subcapital right femoral neck fracture. She also complained of right wrist pain on admission and 3 views of the right wrist did not reveal a fracture. She was evaluated by Dr. Gennaro Fernando of orthopedic surgery and the patient underwent percutaneous screw fixation of the femoral neck fracture of right hip on November 17, 2023. During the perioperative period, patient was treated with oxycodone 5 mg every 4 hours as needed for pain. Currently the patient does not have any indication for admission and plan is to discharge to home. Arrangements will be made for home health. - HOSPITAL COURSE Hospital Course: Marcy Song was admitted to the hospital with inpatient status. CT scan of the pelvis revealed a nondisplaced subcapital right femoral neck fracture. She also complained of right wrist pain on admission and 3 views of the right wr ist did not reveal a fracture. She was evaluated by Dr. Gennaro Fernando of orthopedic surgery and the patient underwent percutaneous screw fixation of the femoral neck fracture of right hip on November 17, 2023. During the perioperative period, patient was treated with oxycodone 5 mg every 4 hours as needed for pain. Currently the patient does not have any indication for admission and plan is to discharge to home. Arrangements will be made for home health. - ALLERGIES Allergies/Adverse Reactions: Allergies Allergy/AdvReac Type Severity Reaction Status Date / Time Influenza Virus Vaccines Allergy Severe Anxiety Verified 11/16/23 11:07 Sulfa (Sulfonamide Allergy Severe Anaphylaxis Verified 11/16/23 11:07 Antibiotics) pneumococcal vaccine Allergy Headache Verified 11/16/23 11:07 [From Pneumovax-23] sucralfate [From Carafate] Allergy Unknown Verified 11/16/23 11:07 - MEDICATIONS Home Medications: Ambulatory Orders Medication Instructions Recorded Confirmed Lacosamide [Vimpat] 100 mg PO BID 06/02/21 11/16/23 Amitriptyline HCl 50 mg PO QPM PRN 06/19/21 11/16/23 Levetiracetam [Keppra] 750 mg PO BID 11/16/23 11/16/23 Aspirin EC [Ecotrin] 81 mg PO BID #90 tab 11/18/23 Calcium Carbonate [Tums (Calcium 500 mg PO DAILY #60 tablet 11/18/23 Carbonate 500mg)] Docusate Sodium 100Mg Capsule 100 mg PO BID PRN #60 cap 11/18/23 [Colace 100Mg Capsule] Ibuprofen [Motrin] 400 mg PO Q6H #90 tablet 11/18/23 Pantoprazole Sodium 20 mg PO BID #60 tab 11/18/23 Senna [Senokot] 8.6 mg PO BID #60 tablet 11/18/23 Temazepam [Restoril] 30 mg PO HS PRN #30 cap 11/18/23 11/16/23 oxyCODONE [Roxicodone] 5 mg PO Q4HR PRN #56 tab 11/18/23 - PHYSICAL EXAM AT DISCHARGE General Appearance: positive: No acute distress, Alert Eyes Bilateral: positive: PERRL, Conjunctivae nml Neck: positive: No JVD, Trachea midline Respiratory: positive: No respiratory distress, Breath sounds nml Cardiovascular: positive: Other (Positive S1-S2 no extra heart sounds.) Peripheral Pulses: positive: 2+ Abdomen: positive: Other (Soft nondistended positive bowel sound) Skin: positive: No rash Extremities: positive: Non-tender, No pedal edema Neurologic/Psychiatric: positive: Oriented x3, Motor nml - LABS Result Diagrams: 11/18/23 05:17 11/18/23 05:17 - QUALITY (Female Hip Fx Only) Was patient sent home on osteoporosis medication?: Yes - FOLLOW UP Follow Up: Please follow-up with Dr. Gennaro Fernando in 1 week. Please call his office to arrange an appointment. Please follow-up with your primary care provider, - TIME SPENT Time Spent in Discharge (Minutes): 32 (I spent 32 minutes coordinating the discharge for patient)"
[2023-11-18 19:35] VITALS: BP 134/82
== END 2023-11-18 20:34 | disposition home or self-care (01) | DRG 482 ==
LOC: EDUNIT# → ED 10:59 → MS2 16:50
PROVIDERS: ADMIT Internal Medicine; ATTEND Internal Medicine
PROC: 0QS634Z Reposition Right Upper Femur with Internal Fixation Device, Percutaneous Approach (ICD-10-PCS; principal; 2023-11-17 12:00)
DX: S72.011A Unspecified intracapsular fracture of right femur, initial encounter for closed fracture (principal); G40.909 Epilepsy, unspecified, not intractable, without status epilepticus; M25.531 Pain in right wrist; W01.0XXA Fall on same level from slipping, tripping and stumbling without subsequent striking against object, initial encounter; I25.2 Old myocardial infarction; J45.909 Unspecified asthma, uncomplicated; M19.90 Unspecified osteoarthritis, unspecified site; Z79.899 Other long term (current) drug therapy
CPT/HCPCS: 36415; 51702; 71045; 72192; 73110; 73502; 73551; 80048; 80053; 81003; 83690; 83735; 84100; 85025; 85027; 93005; 96374; 96375; 96376; 97162; 97166; 99285; A9270; J1170; J2795; J3490; J7120; 81001; 87086

== ENCOUNTER 2023-12-03 10:12 | Outpatient (CLI) | payer MEDICARE, OTHER | END 2023-12-03 10:13 | disposition critical access hospital (66) | LOC: EMS 10:12 | DX: M25.551 Pain in right hip (principal); Z98.890 Other specified postprocedural states | CPT/HCPCS: A0425; A0429 ==

== ENCOUNTER 2023-12-03 10:23 | Emergency (ER) | payer MEDICARE, OTHER ==
--- NOTE | 2023-12-03 12:17 | XRAY Report ---
PROCEDURE: Hips w/Pelvis 2-3V BL INDICATIONS: trauma TECHNIQUE: Right view(s) of the hip were acquired. COMPARISON: CT November 16, 2023 FINDINGS: Bones: Screw fixation of the right femoral neck transversing a subcapital right femoral neck fracture in near anatomic alignment. There is persistent fracture lucency. No evidence of hardware complicati on. No fractures or dislocations. No suspicious bony lesions. The visualized pelvic ring appears in tact. Soft tissues: No suspicious soft tissue calcifications or masses. IMPRESSION: Screw fixation of the right femoral neck fracture without evidence of hardware complication. Reviewed by: Naresh Ann MD on 12/03/2023 11:16 AM LATASHA Approved by: Naresh Ann MD on 12/03/2023 11:16 AM LATASHA Station ID: [id number]
[2023-12-03] MEDS: HYDROmorphone 1 MG/ML CARPUJECT IM STA (12:39)
--- NOTE | 2023-12-03 12:49 | ED Physician Documentation ---
History of Present Illness - Stated complaint Stated Complaint: R HIP PX - Chief complaint Chief Complaint: Ext Problem - History obtained from History obtained from: Patient - History of Present Illness Timing: Today Pain level max: 8 Pain level now: 8 - Additonal information Additional information: Patient is a 73-year-old female who states that she had screws placed into her right hip about 2 weeks ago. She states that today she was getting out of bed and twisted on the hip feeling increased pain to the right hip. She took 5 mg of oxycodone prior to arrival. Her pain is now starting to decrease. Lives at home with her spouse. No fall. No head, neck, back injury. No chest pain. No shortness of breath. Worse with movement, better with rest. 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 Neuro: Craniotomy HEENT: Cataracts - Present Medications Home Medications: Ambulatory Orders Medication Instructions Recorded Confirmed Lacosamide [Vimpat] 100 mg PO BID 06/02/21 11/16/23 Amitriptyline HCl 50 mg PO QPM PRN 06/19/21 11/16/23 Levetiracetam [Keppra] 750 mg PO BID 11/16/23 11/16/23 Aspirin EC [Ecotrin] 81 mg PO BID #90 tab 11/18/23 Calcium Carbonate [Tums (Calcium 500 mg PO DAILY #60 tablet 11/18/23 Carbonate 500mg)] Docusate Sodium 100Mg Capsule 100 mg PO BID PRN #60 cap 11/18/23 [Colace 100Mg Capsule] Ibuprofen [Motrin] 400 mg PO Q6H #90 tablet 11/18/23 Pantoprazole Sodium 20 mg PO BID #60 tab 11/18/23 Senna [Senokot] 8.6 mg PO BID #60 tablet 11/18/23 Temazepam [Restoril] 30 mg PO HS PRN #30 cap 11/18/23 11/16/23 oxyCODONE [Roxicodone] 5 mg PO Q4HR PRN #56 tab 11/18/23 - Allergies Allergies/Adverse Reactions: Allergies Allergy/AdvReac Type Severity Reaction Status Date / Time Influenza Virus Vaccines Allergy Severe Anxiety Verified 12/03/23 10:38 Sulfa (Sulfonamide Allergy Severe Anaphylaxis Verified 12/03/23 10:38 Antibiotics) pneumococcal vaccine Allergy Headache Verified 12/03/23 10:38 [From Pneumovax-23] sucralfate [From Carafate] Allergy Unknown Verified 12/03/23 10:38 - Social History Does the pt smoke?: No Smoking Status: Never smoker Does the pt drink ETOH?: Yes Does the pt have substance abuse?: No - Immunizations Immunizations are current?: Yes - POLST Patient has POLST: No POLST Status: Full Code PD ED PE NORMAL - Vitals Vital signs reviewed: Yes - General General: Alert and oriented X 3 - HEENT HEENT: Moist mucous membranes - Neck Neck: Supple, no meningeal sign - Derm Derm: Warm and dry - Extremities Extremities: No calf tenderness / cord, Other (The right hip appears to be healing well. No signs of infection. Mild bruising. No redness, warmth or swelling.) - Neuro Neuro: Alert and oriented X 3 - Psych Psych: Normal mood, Normal affect Results - Vitals Vitals: Vital Signs - 24 hr 12/03/23 10:31 Heart Rate 86 Respiratory 16 Rate Blood Pressure 123/69 O2 Saturation 97 Oxygen O2 Source Room air - Rads (name of study) Right hip x-ray Relevant Findings:: Final report received, See rad report (No acute abnormality) PD Medical Decision Making - ED course Complexity details: reviewed results, re-evaluated patient, considered differential, d/w patient ED course: 73-year-old female status post a recent hip surgery with 2 pins/screws placed into the right hip. She states that she twisted wrong in bed and had increasing pain. No acute findings on x-ray. Physical exam consistent with normal postoperative healing. Given a dose of Dilaudid here and pain well-controlled. She has oxycodone at home for pain. Recommend that she continue this and follow-up with orthopedics for further care. Patient counseled regarding signs and symptoms for which I believe and urgent re-evaluation would be necessary. Patient with good understanding of and agreement to plan and is comfortable going home at this time This document was made in part using voice recognition software. While efforts are made to proofread this document, sound alike and grammatical errors may occur. Departure - Departure Clinical Impression: Postoperative pain, acute, hip Qualifiers: Laterality: right Qualified Code(s): G89.18 - Other acute postprocedural pain; M25.551 - Pain in right hip Condition: Good Instructions: ED Post Op Pain Follow-Up: Marylou Muniz MD [Primary Care Provider] - Gennaro Fernando MD [Provider Admit Priv/Credential] - Comments: Please continue your current pain medication at home. Please return if you worsen. Please follow-up with your orthopedist for further care. Your x-rays do not show any acute abnormalities today.
[2023-12-03 13:43] VITALS: BP 130/85; O2SAT 93
== END 2023-12-03 13:53 | disposition home or self-care (01) ==
LOC: EDUNIT# → ED 10:23
DX: G89.18 Other acute postprocedural pain (principal); M25.551 Pain in right hip; Z79.899 Other long term (current) drug therapy; Z79.82 Long term (current) use of aspirin
CPT/HCPCS: 73521; 96372; 99283; J1170

== ENCOUNTER 2023-12-22 09:59 | Outpatient (CLI) | payer MEDICARE, OTHER ==
--- NOTE | 2023-12-22 11:29 | XRAY Report ---
PROCEDURE: Hip w/Pelvis 2-3V RT INDICATIONS: RIGHT FEMUR FRACTURE TECHNIQUE: 2 views of the hip were acquired. COMPARISON: Pelvic and right hip radiographs 12/03/2023, 11/16/2023. FINDINGS: Bones: 3 screws spanning the right femoral neck. Hardware is intact. Hardware projects in the expect ed location and appears unchanged. No acute fractures or dislocations. No suspicious bony lesions. Soft tissues: No suspicious soft tissue calcifications or masses. IMPRESSION: Stable appearance of the right femoral neck screw fixation. Reviewed by: Veto Dale MD on 12/22/2023 11:27 AM PDT Approved by: Veto Dale MD on 12/22/2023 11:27 AM PDT Station ID: [id number]
== END 2023-12-22 10:00 | disposition home or self-care (01) ==
LOC: DI 09:59
PROVIDERS: ATTEND Orthopaedic Surgery
DX: S72.011D Unspecified intracapsular fracture of right femur, subsequent encounter for closed fracture with routine healing (principal)

== ENCOUNTER 2024-02-06 10:25 | Outpatient (CLI) | payer MEDICARE, OTHER ==
--- NOTE | 2024-02-06 13:13 | XRAY Report ---
PROCEDURE: Hip w/Pelvis 2-3V RT INDICATIONS: INTRACAPULAR FX OF RIGHT FEMUR TECHNIQUE: 2 views of the hip were acquired. COMPARISON: None. FINDINGS: Bones: Surgical pinning of the right femoral neck, with anatomic alignment. Soft tissues: No suspicious soft tissue calcifications or masses. IMPRESSION: Surgical fusion of the right femoral neck, with anatomic alignment. Reviewed by: Rupert Jin MD on 02/06/2024 1:12 PM PDT Approved by: Rupert Jin MD on 02/06/2024 1:12 PM PDT Station ID: [id number]
== END 2024-02-06 10:26 | disposition home or self-care (01) ==
LOC: DI 10:25
PROVIDERS: ATTEND Orthopaedic Surgery
DX: S72.011D Unspecified intracapsular fracture of right femur, subsequent encounter for closed fracture with routine healing (principal)